=== PATIENT | male | born 1940 | race Caucasian/White ===

== ENCOUNTER 2016-10-08 09:21 | Outpatient (CLI) | payer MEDICARE, OTHER ==
[2016-10-08 12:36] LABS: #Basophils 0.1 thou/uL (0.0-0.2); #Eosinphils 0.2 thou/uL (0.0-0.7); #Lymphocytes 1.6 thou/uL (1.20-3.40); #Monocytes 0.8 thou/uL (0.11-0.59); #Neutrophils 4.6 thou/uL (1.40-6.50); %Basophils 1.1 % (0.0-1.0); %Eosinophils 2.6 % (0.0-10.0); %Lymphocytes 21.8 % (21.0-51.0); %Monocytes 11.3 % (0.0-10.0); Hematocrit 42.3 % (42.0-52.0); Mean Platelet Volume 6.4 fL (7.4-10.4); Red Blood Cell (RBC) Count 4.25 mill/uL (4.70-6.10); White Blood Cell (WBC) Count 7.2 thou/uL (4.8-10.8)
[2016-10-08 12:50] LABS: ALT (SGPT) 22 U/L (0-55); AST (SGOT) 23 U/L (5-34); Alkaline Phosphatase 37 U/L (40-150); Anion Gap 14 mmol/L (10-20); BUN (Urea Nitrogen) 19 mg/dL (8.4-25.7); Bilirubin, Direct 0.2 mg/dL (0.1-0.3); Bilirubin, Total 0.4 mg/dL (0.2-1.2); Calc. Creatinine Clearance 0 mL/min (70-130); Calcium 9.3 mg/dL (7.8-10.44); Carbon Dioxide 26 mmol/L (23-31); Chloride 105 mmol/L (98-107); Estimated GFR-MDRD 62; LDL Cholesterol, Calculated 81 mg/dL
[2016-10-08 13:33] LABS: Hemoglobin A1c 5.5 % (4.0-6.0)
== END 2016-10-08 09:22 | disposition home or self-care (01) ==
LOC: NAVSJIPCSP 09:21
PROVIDERS: ATTEND Family Medicine
DX: I10 Essential (primary) hypertension (principal)
CPT/HCPCS: 36415; 80048; 80061; 80076; 83036; 84443; 85025

== ENCOUNTER 2017-03-11 08:49 | Outpatient (CLI) | payer MEDICARE, OTHER ==
[2017-03-11 13:00] LABS: #Basophils 0.1 thou/uL (0.0-0.2); #Eosinphils 0.2 thou/uL (0.0-0.7); #Lymphocytes 1.5 thou/uL (1.20-3.40); #Monocytes 0.8 thou/uL (0.11-0.59); #Neutrophils 3.2 thou/uL (1.40-6.50); %Basophils 2.4 % (0.0-1.0); %Eosinophils 4.1 % (0.0-10.0); %Lymphocytes 25.4 % (21.0-51.0); %Monocytes 13.3 % (0.0-10.0); %Neutrophils 54.8 % (42.0-75.0); Hemoglobin 14.1 g/dL (14.0-18.0); Mean Corpuscular HGB CONC 32.6 g/dL (32.0-36.0); Mean Corpuscular Hemoglobin 32.1 pg (27.0-31.0); Mean Corpuscular Volume 98.4 fl (80.0-94.0); Mean Platelet Volume 6.6 fL (7.4-10.4); Platelet Count 219 thou/uL (130-400); White Blood Cell (WBC) Count 5.9 thou/uL (4.8-10.8)
[2017-03-11 14:03] LABS: ALT (SGPT) 23 U/L (8-55); AST (SGOT) 30 U/L (5-34); Albumin 3.9 g/dL (3.4-4.8); Alkaline Phosphatase 44 U/L (40-150); Anion Gap 15 mmol/L (10-20); BUN (Urea Nitrogen) 14 mg/dL (8.4-25.7); Bilirubin, Direct 0.2 mg/dL (0.1-0.3); Bilirubin, Total 0.4 mg/dL (0.2-1.2); Calc. Creatinine Clearance 0 mL/min (70-130); Calcium 9.5 mg/dL (7.8-10.44); Carbon Dioxide 26 mmol/L (23-31); Cardiac Risk 2.6 (Less than 4.5); Chloride 106 mmol/L (98-107); Cholesterol 167 mg/dl (< 200 Desired); Estimated GFR-MDRD 63; Glucose 83 mg/dL (83-110); HDL Cholesterol 64 mg/dL (>60 Neg Risk); LDL Cholesterol, Calculated 86 mg/dL; Potassium 4.5 mmol/L (3.5-5.1); Protein, Total 6.1 g/dL (5.8-8.1); Sodium 142 mmol/L (136-145); Triglycerides 84 mg/dL (Less than 150)
[2017-03-11 14:33] LABS: Hemoglobin A1c 5.5 % (4.0-6.0)
== END 2017-03-11 08:50 | disposition home or self-care (01) ==
LOC: NAVSJIPCSP 08:49
PROVIDERS: ATTEND Family Medicine
DX: E78.00 Pure hypercholesterolemia, unspecified (principal); I10 Essential (primary) hypertension; J44.9 Chronic obstructive pulmonary disease, unspecified; I25.10 Atherosclerotic heart disease of native coronary artery without angina pectoris; K05.10 Chronic gingivitis, plaque induced; M85.80 Other specified disorders of bone density and structure, unspecified site; Z79.899 Other long term (current) drug therapy
CPT/HCPCS: 36415; 80048; 80061; 80076; 83036; 84443; 85025

== ENCOUNTER 2018-10-16 13:02 | Inpatient (IN) | payer MEDICARE, OTHER ==
[2018-10-16] MEDS ORDERED: Calcium Carbonate 500 MG ChewTAB PO PRN (15:05)
[2018-10-16] MEDS ORDERED: Acetaminophen 325 MG TAB PO PRN (15:05)
[2018-10-16] MEDS ORDERED: Loperamide HCl 2 MG CAP PO PRN (15:05)
[2018-10-16] MEDS ORDERED: traMADol HCl 50 MG TAB PO PRN (15:05)
[2018-10-16] MEDS ORDERED: cloNIDine 0.1 MG TAB PO PRN (15:05)
[2018-10-16] MEDS ORDERED: Ondansetron ODT 4 MG TAB PO PRN (15:05)
[2018-10-16] MEDS ORDERED: Bisacodyl 10 MG SUPP PR PRN (15:05)
[2018-10-16] MEDS ORDERED: Polyethylene Glycol 3350 17 GM Packet PO PRN (15:05)
[2018-10-16] MEDS ORDERED: Ampicillin 2 GM VIAL IVPB SCH (15:15)
[2018-10-16] MEDS ORDERED: Polyethylene Glycol OPTH DROP 15 ML BOT EA EYE PRN (16:23)
[2018-10-16] MEDS: Ampicillin 2 GM in Sodium Chloride 0.9% 100 ML IVPB SCH ×2 (16:34→20:00)
[2018-10-16] MEDS ORDERED: Albuterol Sulfate 2.5 mg/3 ml Neb NEB PRN (16:46)
[2018-10-16] MEDS: Potassium Chloride 20 MEQ TAB PO SCH (17:53)
[2018-10-16] MEDS: Mometasone Furoate 120 PUFF 220 MCG INH SCH (17:55)
[2018-10-16] MEDS: Montelukast Sodium 10 mg Tablet PO SCH (20:01)
[2018-10-16] MEDS: Famotidine 20 MG TAB PO SCH (20:01)
[2018-10-16] MEDS: Atorvastatin Calcium 20 MG TAB PO SCH (20:01)
[2018-10-16] MEDS: THEOPHYLLINE 200 MG PO SCH (20:01)
[2018-10-16] MEDS ORDERED: Albuterol Sulfate 2.5 mg/3 ml Neb NEB SCH (21:00)
[2018-10-16 21:45] LABS: Bilirubin Negative (Negative); Blood, Urine Trace (Negative); Clarity Clear (Clear); Glucose, Urine (Dipstick) Negative (Negative); Leukocyte Negative (Negative); Nitrite Negative (Negative); Protein, Urine (Dipstick) 30 mg/dL (Neg-Trace); Specific Gravity, Urine 1.015 (1.005-1.030); Urobilinogen 0.2 mg/dL (0.2-1.0)
[2018-10-16 21:53] LABS: Bacteria/HPF None Seen HPF (None Seen); RBC/HPF 0-3 HPF (0-3); Squamous Epithelial 0-3 HPF (0-3); WBC/HPF None Seen HPF (0-3)
--- NOTE | 2018-10-16 22:46 | HP ---
HISTORY OF PRESENT ILLNESS: Mr. Ho is a very pleasant 78-year-old white male from the [facility]. He initially presented to the emergency room with fever , chills, and shortness of breath. 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 He was seen in consultation by Dr. Chaves and by Dr. Canchola. He was transferred to [facility] after being in the rehab hospital for physical therapy and occupational therapy. He was transferred here for continued IV antibiotics to about the middle of October. He is presently on ampicillin 2 g IV piggyback q.4 hours and gentamicin 80 mg IV piggyback q.12 hours. SUBJECTIVE: The patient states he is doing well. He had a nice ride down and is little achy, but glad to be here for more therapy and for his IV antibiotics. PAST MEDICAL HISTORY: 1. Positive for COPD. 2. Hypertension. 3. Left inguinal hernia. 4. Coronary artery disease. 5. Asthma. 6. Renal cyst. 7. Adenocarcinoma of the prostate, for which he completed radiation in April 2010. 8. Osteoporosis. 9. 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 10. Hypercholesterolemia. PAST SURGICAL HISTORY: 1. Lumbar disk surgery L1 through L5 in 1995. 2. Colonoscopy with colon polyps in 2006. 3. Prostate cancer surgery with bilateral pelvic lymphadenectomy and radical retropubic prostatectomy by Dr. Wright. 4. Hernia surgery in 2005. 5. I and D drainage of groin abscess done by in 2005. 6. Colonoscopy in 2004. 7. Colonoscopy by Dr. Case in 2012. 8. Valvular surgery by Dr. Wiley in 2002. 9. Aortic valve and CABG x3 by Dr. Wiley in December 2014. 10. Basal cell cancer of the right cheek in 2016. FAMILY HISTORY: Reveals the patient's father at age 86. He had lung problems, heart valve problems, and heart disease. The patient's mother with heart disease. The patient has one brother with heart issues and one with pancreatic duct issues. The patient had one sister of alcohol abuse at age 52. The patient's paternal grandmother had COPD. The patient's maternal grandfather had heart disease. The patient's maternal grandmother had heart disease. Family history is positive heart disease, COPD, asthma, arthritis, and alcoholism. SOCIAL HISTORY: The patient is a former smoker. He continues to drink beer and/or vodka p.r.n. He lives with his spouse and cares for her. Unfortunately, she has Alzheimer's , unable to live by herself. He is retired preacher. He has either 11 or 12 children. REVIEW OF SYSTEMS: CONSTITUTIONAL: Denies fever, chills, night sweats, or weight change recently. The patient denies any recent headaches or head injuries. The patient denies any change in his vision or hearing. HEENT: Reveals the patient denies any rhinorrhea, nasal congestion, sinus headaches, or cough or cold this time. RESPIRATORY: The patient denies cough, shortness of breath, hemoptysis, productive sputum with cough. CARDIOVASCULAR: The patient denies any edema, dyspnea on exertion, chest pain, orthopnea, or claudication. GASTROINTESTINAL: Reveals the patient denies nausea, vomiting, diarrhea, constipation, dysphagia, melena, or hematemesis. : The patient denies any frequency or urgency, dysuria, incontinence, or hematuria. MUSCULOSKELETAL: The patient has some right hip pain. He does have some generalized weakness. SKIN: The patient denies any changing skin lesions or skin rashes. The patient denies polydipsia, polyphagia, polyuria, change in thirst or appetite, or change in skin color or hair. NEUROLOGIC: The patient denies any dizziness, syncope, paralysis, or loss of sensation. PSYCHIATRY: Psychologically, the patient denies any anxiety or depressive disorder problems. PHYSICAL EXAMINATION: GENERAL: This is a well-developed, well-nourished, very pleasant, thin white male, in no apparent distress at this time. HEENT: Normocephalic and nontraumatic cranium. Pupils equal, round, and reactive. Extraocular movements are intact. Nose and throat are slightly dry. NECK: Supple without masses, nodes, or bruits. CHEST: Clear to auscultation. HEART: Reveals a regular rate and rhythm. Normal S1 and S2 are noted. A 1/6 systolic murmur is heard. ABDOMEN: Scaphoid, soft, nontender without organomegaly. Normal bowel sounds are noted in all 4 quadrants. No rebound or guarding is noted. No CVA tenderness is noted. : Deferred. EXTREMITIES: Reveal no clubbing, cyanosis, or edema. NEUROLOGIC: Grossly unremarkable with no focal findings. ASSESSMENT: 1. 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 2. Chronic atrial fibrillation, rate controlled. 3. Coronary artery disease with prior non-ST segment elevation myocardial infarction. 4. Chronic obstructive pulmonary disease with acute lower respiratory tract infection in the recent past. 5. Hypertension. 6. Critical illness myopathy. 7. Hyperlipidemia. 8. Urinary retention. 9. Recent splenic infarcts. 10. Generalized weakness. PLAN: 1. The patient will continue his ampicillin 2 g IV q.4 hours until the middle of October. 2. The patient will continue gentamicin 80 mg q.12 hours until the middle of October and adjust as needed. 3. Continue to monitor the patient's gentamicin level. 4. Continue to follow the patient's rate for RVR. 5. Monitor the patient's blood pressure. Adjust medications as needed. 6. Stress ulcer prophylaxis. 7. Decubitus precautions. 8. DVT prophylaxis. 9. Continue physical therapy and occupational therapy. 10. Continue to monitor the patient for cardiac signs or symptoms of congestive heart failure. Job ID: [id number] [facility]
[2018-10-17] MEDS: Ampicillin 2 GM in Sodium Chloride 0.9% 100 ML IVPB SCH ×7 (00:32→23:41)
[2018-10-17] MEDS ORDERED: Gentamicin Sulfate 80 MG in Premix Bag 1 BAG IVPB SCH ×2 (01:00)
[2018-10-17] MEDS ORDERED: Gentamicin 80 MG/100 ML BAG IVPB SCH (01:00)
[2018-10-17] MEDS: Acetaminophen 325 MG TAB PO PRN (01:48)
[2018-10-17] MEDS: Guaifenesin DM 100-10/5 ML UDCUP PO PRN (01:48)
[2018-10-17 05:07] LABS: #Basophils 0.1 thou/uL (0.0-0.2); #Eosinphils 0.3 thou/uL (0.0-0.7); #Neutrophils 7.9 thou/uL (1.40-6.50); %Basophils 0.6 % (0.0-1.0); %Eosinophils 2.4 % (0.0-10.0); %Lymphocytes 17.5 % (21.0-51.0); %Monocytes 9.1 % (0.0-10.0); %Neutrophils 70.3 % (42.0-75.0); Hemoglobin 8.4 g/dL (14.0-18.0); Mean Corpuscular HGB CONC 32.6 g/dL (32.0-36.0); Mean Corpuscular Hemoglobin 29.4 pg (27.0-31.0); Mean Corpuscular Volume 90.2 fL (78.0-98.0); Mean Platelet Volume 5.3 fL (7.4-10.4); Platelet Count 361 thou/uL (130-400); RBC Distribution Width 13.2 % (11.5-14.5); Red Blood Cell (RBC) Count 2.86 mill/uL (4.70-6.10); White Blood Cell (WBC) Count 11.3 thou/uL (4.8-10.8)
[2018-10-17 05:27] LABS: ALT (SGPT) 12 U/L (8-55); AST (SGOT) 21 U/L (5-34); Albumin 2.9 g/dL (3.4-4.8); Alkaline Phosphatase 54 U/L (40-150); Anion Gap 14 mmol/L (10-20); BUN (Urea Nitrogen) 15 mg/dL (8.4-25.7); Bilirubin, Total 0.3 mg/dL (0.2-1.2); Calc. Creatinine Clearance 44 mL/min (70-130); Calcium 8.5 mg/dL (7.8-10.44); Carbon Dioxide 25 mmol/L (23-31); Chloride 102 mmol/L (98-107); Estimated GFR-MDRD 55; Globulin 2.7 g/dL (2.4-3.5); Glucose 117 mg/dL (83-110); Protein, Total 5.6 g/dL (5.8-8.1); Sodium 138 mmol/L (136-145)
[2018-10-17 06:15] LABS: Potassium 2.6 mmol/L (3.5-5.1)
--- NOTE | 2018-10-17 08:07 | PRG ---
DATE OF SERVICE: 10/17/2018 SUBJECTIVE: Mr. Ho is a very pleasant 78-year-old white male from [place]. He presented to the emergency room with fever, chills, shortness of breath and mental status changes. He is found to have endocarditis with large vegetation on mitral valve and probable infection of the aortic valve. He is seen in consultation by Dr. Chaves and Dr. Canchola and placed on ampicillin and gentamicin until November 05 or . The patient states he slept well last night except he did have a chill. States it lasted for almost an hour. He got lots of covers. I told him if that happens again, we will do blood cultures. OBJECTIVE: VITAL SIGNS: Blood pressure 135/70, pulse 89 to 108, respirations 20 to 22, O2 saturation 97% on room air, and T-max 98.3. GENERAL: Reveals a well-developed, well-nourished, thin white male, in no apparent distress at this time. HEENT: Reveals normocephalic and nontraumatic cranium. Pupils are equally round and reactive. Extraocular movements are intact. Nose and throat are moist. NECK: Supple without masses, nodes, or bruits. CHEST: Clear to auscultation. HEART: Reveals a regular rate and rhythm without murmurs, gallops, or rubs. Actually, the patient does have a 1/6 systolic ejection murmur. ABDOMEN: Scaphoid, soft, nontender without organomegaly. Normal bowel sounds are noted in all 4 quadrants. No rebound or guarding is noted. : Deferred. EXTREMITIES: Reveal no clubbing, cyanosis, or edema. Neurologically, no focal findings are found. LABORATORY DATA: Reveals white count 11,300, hemoglobin 8.4, hematocrit 25.8, platelet count 361. Sodium 138, potassium 2.6, which is low. The patient will be on 20 mEq of potassium chloride b.i.d. Chloride 102, carbon dioxide 25 with BUN 15, creatinine 1.25, and sugar 117. Urinalysis is unremarkable. ASSESSMENT: 1. 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 2. Chronic atrial fibrillation, rate controlled. 3. Coronary artery disease with [id number] elevation myocardial infarction. 4. Chronic obstructive pulmonary disease with acute lower respiratory tract infection in the recent past. 5. Hypertension. 6. Critical illness myopathy. 7. Hyperlipidemia. 8. Urinary retention. 9. Recent splenic infarcts. 10. Generalized weakness. PLAN: 1. Continue ampicillin 2 g q.4 hours. 2. Continue gentamicin 80 mg q.12 hours. 3. Continue to monitor the patient's gentamicin level which we will do tomorrow morning. 4. Follow the patient's heart rate for RVR. 5. Monitor the patient's blood pressure, adjust medications as needed. 6. Stress ulcer prophylaxis. 7. Decubitus precautions. 8. DVT prophylaxis. 9. Continue PT and OT. 10. Continue to monitor the patient for signs and symptoms of congestive heart failure. Job ID: [id number]
[2018-10-17] MEDS: Fluticasone Propionate Nasal Spray 16 gm Bottle NASAL SCH (08:29)
[2018-10-17] MEDS: Saccharomyces boulardii 250 MG CAP PO SCH (08:30)
[2018-10-17] MEDS: THEOPHYLLINE 200 MG PO SCH ×2 (08:30→20:17)
[2018-10-17] MEDS: Pregabalin 75 MG CAP PO SCH (08:31)
[2018-10-17] MEDS: Potassium Chloride 20 MEQ TAB PO SCH ×2 (08:31→15:59)
[2018-10-17] MEDS: Clopidogrel Bisulfate 75 MG TAB PO SCH (08:33)
[2018-10-17] MEDS: Multivitamin W/ Minerals 1 TAB PO SCH (08:34)
[2018-10-17] MEDS: Tamsulosin HCl 0.4 MG CAP PO SCH (08:34)
[2018-10-17] MEDS: Milk Of Magnesia 30 ML UDCUP PO SCH (08:34)
[2018-10-17] MEDS ORDERED: Sodium Chloride 0.9% 10 ML ONE ×2 (12:02→14:16)
[2018-10-17] MEDS ORDERED: Sodium Chloride 0.9% 100 ML ONE (12:02)
[2018-10-17] MEDS: Gentamicin Sulfate 80 MG in Premix Bag 1 BAG IVPB SCH ×2 (13:43→14:12)
[2018-10-17] MEDS ORDERED: Gentamicin 80 MG/2 ML VIAL ONE (13:56)
[2018-10-17] MEDS: Mometasone Furoate 120 PUFF 220 MCG INH SCH (18:20)
[2018-10-17] MEDS ORDERED: Sodium Chloride 0.9% 20 ML ONE (19:59)
[2018-10-17] MEDS: Famotidine 20 MG TAB PO SCH (20:17)
[2018-10-17] MEDS: Montelukast Sodium 10 mg Tablet PO SCH (20:17)
[2018-10-17] MEDS: Atorvastatin Calcium 20 MG TAB PO SCH (20:17)
[2018-10-18] MEDS: Gentamicin Sulfate 80 MG in Premix Bag 1 BAG IVPB SCH ×2 (00:56→13:23)
[2018-10-18] MEDS ORDERED: Sodium Chloride 0.9% 10 ML ONE (03:41)
[2018-10-18] MEDS: Ampicillin 2 GM in Sodium Chloride 0.9% 100 ML IVPB SCH ×5 (03:47→19:20)
[2018-10-18 05:24] LABS: Anion Gap 15 mmol/L (10-20); BUN (Urea Nitrogen) 14 mg/dL (8.4-25.7); Calc. Creatinine Clearance 52 mL/min (70-130); Calcium 8.3 mg/dL (7.8-10.44); Carbon Dioxide 24 mmol/L (23-31); Chloride 101 mmol/L (98-107); Estimated GFR-MDRD 66; Glucose 89 mg/dL (83-110); Potassium 3.1 mmol/L (3.5-5.1); Sodium 137 mmol/L (136-145)
[2018-10-18] MEDS: Fluticasone Propionate Nasal Spray 16 gm Bottle NASAL SCH (08:34)
[2018-10-18] MEDS: Pregabalin 75 MG CAP PO SCH (08:34)
[2018-10-18] MEDS: THEOPHYLLINE 200 MG PO SCH ×2 (08:36→20:05)
[2018-10-18] MEDS: Tamsulosin HCl 0.4 MG CAP PO SCH (08:36)
[2018-10-18] MEDS: Clopidogrel Bisulfate 75 MG TAB PO SCH (08:38)
[2018-10-18] MEDS: Milk Of Magnesia 30 ML UDCUP PO SCH (08:38)
[2018-10-18] MEDS: Multivitamin W/ Minerals 1 TAB PO SCH (08:38)
[2018-10-18] MEDS: Potassium Chloride 20 MEQ TAB PO SCH ×2 (08:38→16:03)
[2018-10-18] MEDS ORDERED: Ampicillin 2 GM VIAL ONE (08:44)
[2018-10-18] MEDS: predniSONE 20 MG TAB PO SCH (08:47)
[2018-10-18] MEDS: Saccharomyces boulardii 250 MG CAP PO SCH (09:04)
[2018-10-18] MEDS: Mometasone Furoate 120 PUFF 220 MCG INH SCH (18:21)
[2018-10-18 19:39] VITALS: BMI 21.9
[2018-10-18] MEDS: Atorvastatin Calcium 20 MG TAB PO SCH (20:05)
[2018-10-18] MEDS: Montelukast Sodium 10 mg Tablet PO SCH (20:05)
[2018-10-18] MEDS: Famotidine 20 MG TAB PO SCH (20:05)
[2018-10-19] MEDS: Ampicillin 2 GM in Sodium Chloride 0.9% 100 ML IVPB SCH ×7 (00:04→23:58)
[2018-10-19] MEDS: guaiFENesin/Codeine Phosphate 200 mg/20 mg 10 ml UD Cup PO PRN (00:12)
[2018-10-19] MEDS: Gentamicin Sulfate 80 MG in Premix Bag 1 BAG IVPB SCH ×2 (00:56→13:01)
[2018-10-19] MEDS: Pregabalin 75 MG CAP PO SCH (08:11)
[2018-10-19] MEDS: Saccharomyces boulardii 250 MG CAP PO SCH (08:11)
[2018-10-19] MEDS: Clopidogrel Bisulfate 75 MG TAB PO SCH (08:15)
[2018-10-19] MEDS: Multivitamin W/ Minerals 1 TAB PO SCH (08:15)
[2018-10-19] MEDS: THEOPHYLLINE 200 MG PO SCH ×2 (08:16→20:35)
[2018-10-19] MEDS: Potassium Chloride 20 MEQ TAB PO SCH ×2 (08:16→16:56)
[2018-10-19] MEDS: Fluticasone Propionate Nasal Spray 16 gm Bottle NASAL SCH (08:19)
[2018-10-19] MEDS: Milk Of Magnesia 30 ML UDCUP PO SCH (08:21)
--- NOTE | 2018-10-19 08:40 | PRG ---
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 He was found to have endocarditis and large vegetation on the mitral valve and probable infection of his aortic valve. He was seen by Dr. Canchola and Dr. Chaves in consultation. He was placed on ampicillin and gentamicin until November 05 or . He is here also for physical therapy. The patient was sleeping and gently awakened this morning. He states he had a good night, did not have a chill last night. He states he is doing well, and the nurses have walked him quite a bit yesterday. OBJECTIVE: VITAL SIGNS: Today reveal blood pressure 130/65, pulse 80 7 to 99, respirations 20, O2 saturation 96% to 98% on room air, T-max 99.8 which is last night after he ate a hot tomato soup. GENERAL: This is a well-developed, well-nourished, thin white male, in no apparent distress at this time. HEENT: Reveals normocephalic, nontraumatic cranium. Pupils are equally round and reactive. Extraocular movements are intact. Nose and throat are moist. NECK: Supple without masses, nodes, or bruits. CHEST: Clear. No rales, no rhonchi, no wheezes are heard. HEART: Reveals a regular rate and rhythm with a 1/6 systolic ejection murmur. ABDOMEN: Soft, nontender without organomegaly. Normal bowel sounds are noted in all 4 quadrants. No rebound or guarding. : Deferred. EXTREMITIES: Reveal no clubbing, cyanosis, or edema. NEUROLOGIC: The patient has no focal deficits. LABORATORY DATA: Potassium this morning is up to 3.2. The patient will remain on his potassium b.i.d. ASSESSMENT: 1. 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 2. Continue ampicillin and gentamicin until about the middle of month. 3. Chronic atrial fibrillation, rate controlled. 4. Coronary artery disease with fkq-CJ-vzwujtfhl myocardial infarction. 5. Chronic obstructive pulmonary disease with acute lower respiratory infection in the recent past. 6. Hypertension. 7. Critical illness myopathy. 8. Hyperlipidemia. 9. Urinary retention. 10. Recent splenic infarcts. 11. Generalized weakness. PLAN: 1. Continue ampicillin 2 g q.4 hours. 2. Continue gentamicin 80 mg q.12 hours. 3. Continue to monitor the patient's gentamicin level, which is drawn this morning. 4. Continue to monitor the patient's heart rate for RVR. 5. Monitor the patient's blood pressure, adjust medications as needed. 6. Stress ulcer prophylaxis. 7. Decubitus precautions. 8. DVT prophylaxis. 9. Continue PT and OT. 10. Continue to monitor the patient for signs and symptoms of congestive heart failure. Job ID: [id number]
[2018-10-19] MEDS ORDERED: Tamsulosin HCl 0.4 MG CAP PO SCH (09:00)
[2018-10-19] MEDS: Albuterol Sulfate 2.5 mg/3 ml Neb ONE ×2 (09:52→10:26)
--- NOTE | 2018-10-19 10:17 | PRG ---
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 He was found to have endocarditis with large vegetation on his mitral valve. He has a prior history of aortic valve replacement and most likely has a probable infection there also. He was seen by Dr. Canchola and Dr. Chaves over [facility]. He was placed on ampicillin and gentamicin until november 05 or . He is here for physical therapy. The patient was brushing his teeth this morning, states he is doing very well. He is ready for his therapy this morning. OBJECTIVE: VITAL SIGNS: This morning reveal blood pressure 108/62, pulse 73 to 85, respirations are 18 to 20, O2 saturation 96% to 97% on room air and Temperature-max 98.0. GENERAL: This is a well-developed, well-nourished, thin white male, in no apparent distress at this time. HEENT: Reveals normocephalic and nontraumatic cranium. Pupils are equal, round, and reactive. Extraocular movements are intact. Nose and throat are slightly dry. NECK: Supple without masses, nodes, or bruits. CHEST: Clear to auscultation. Breath sounds are little distant. No rales, rhonchi, wheezes, or cough is heard. HEART: Reveals a regular rate and rhythm with a 1/6 systolic ejection murmur. ABDOMEN: Soft and nontender without organomegaly. Normal bowel sounds are noted in all 4 quadrants. No rebound or guarding is noted. : Deferred. EXTREMITIES: Reveal no clubbing, cyanosis, or edema. The patient has no focal deficits today. ASSESSMENT: 1. Endocarditis with Enterococcus and large vegetation on mitral valve. 2. 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 3. Continue Epogen until about November 05 or . 4. Chronic atrial fibrillation, rate controlled. 5. Coronary artery disease with rvi-CV-[id number] myocardial infarction. 6. Chronic obstructive pulmonary disease with acute lower respiratory infection in the recent past. 7. Hypertension. 8. Critical illness myopathy. 9. Hyperlipidemia. 10. Urinary retention. 11. Recent splenic infarcts. 12. Generalized weakness. PLAN: 1. Continue ampicillin 2 g q.4 hours. 2. Continue gentamicin 80 mg q.12 hours. 3. The patient's gentamicin level was 1.9. We will repeat it tomorrow. 4. Continue to monitor the patient's heart rate for RVR. 5. Monitor the patient's blood pressure. Adjust medications as needed. 6. Stress ulcer prophylaxis. 7. Decubitus precautions. 8. DVT prophylaxis. 9. Continue PT and OT. 10. Continue to monitor the patient for signs and symptoms of CHF. Job ID: [id number]
[2018-10-19] MEDS: Acetaminophen 325 MG TAB PO PRN (16:08)
[2018-10-19] MEDS: Mometasone Furoate 120 PUFF 220 MCG INH SCH (18:42)
[2018-10-19] MEDS: Famotidine 20 MG TAB PO SCH (20:35)
[2018-10-19] MEDS: Montelukast Sodium 10 mg Tablet PO SCH (20:35)
[2018-10-19] MEDS: Atorvastatin Calcium 20 MG TAB PO SCH (20:35)
[2018-10-20] MEDS: Gentamicin Sulfate 80 MG in Premix Bag 1 BAG IVPB SCH ×2 (00:48→12:47)
[2018-10-20] MEDS: Ampicillin 2 GM in Sodium Chloride 0.9% 100 ML IVPB SCH ×6 (04:03→23:45)
[2018-10-20] MEDS: Potassium Chloride 20 MEQ TAB PO SCH ×2 (07:50→16:41)
[2018-10-20] MEDS: THEOPHYLLINE 200 MG PO SCH ×2 (08:39→20:15)
[2018-10-20] MEDS: Saccharomyces boulardii 250 MG CAP PO SCH (08:40)
[2018-10-20] MEDS: predniSONE 20 MG TAB PO SCH (08:41)
[2018-10-20] MEDS: Multivitamin W/ Minerals 1 TAB PO SCH (08:42)
[2018-10-20] MEDS: Clopidogrel Bisulfate 75 MG TAB PO SCH (08:43)
[2018-10-20] MEDS: Pregabalin 75 MG CAP PO SCH (08:43)
[2018-10-20] MEDS: Tamsulosin HCl 0.4 MG CAP PO SCH (08:49)
[2018-10-20] MEDS: Fluticasone Propionate Nasal Spray 16 gm Bottle NASAL SCH (08:49)
[2018-10-20] MEDS: Milk Of Magnesia 30 ML UDCUP PO SCH (09:17)
--- NOTE | 2018-10-20 10:27 | PRG ---
DATE OF SERVICE: 10/20/2018 SUBJECTIVE: Mr. Ho is a pleasant 78-year-old white male. He presented to the emergency room with fever, chills, mental status changes, shortness of breath, and was found to be septic. The etiology of the sepsis was endocarditis with a large vegetation on his mitral valve. He had a prior history of an aortic valve replacement, and was felt that he most likely had infection there also. He was seen in consultation by Dr. Canchola and Dr. Chaves. He was placed on ampicillin and gentamicin until November 05 or November 06. He is here for physical therapy. OBJECTIVE: VITAL SIGNS: Today reveal blood pressure this morning 131/74, pulse 84 to 89, respirations 18 to 20, O2 saturation 94% to 97% on room air, and T-max 97.8. GENERAL: This is a well-developed, well-nourished, very thin white male, in no apparent distress at this time. He states he is doing better and was able to walk and stand yesterday for a short period time without his walker. HEENT: Normocephalic, nontraumatic cranium. Pupils equally round and reactive. Extraocular movements are intact. Nose and throat are moist. NECK: Supple without masses, nodes, or bruits. CHEST: Clear to auscultation. No rales, no rhonchi, no wheezes or cough are heard. HEART: Reveals a regular rate and rhythm with a 1/6 systolic ejection murmur. No irregularity is noted. ABDOMEN: Soft, nontender without organomegaly. Normal bowel sounds are noted. No rebound or guarding is noted. : Deferred. EXTREMITIES: Reveal no clubbing, cyanosis, or edema. The patient has no focal deficits today. ASSESSMENT: 1. Endocarditis with Enterococcus and large vegetation of mitral valve. 2. 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 3. Continue Epogen until November 05 or . 4. Chronic atrial fibrillation, rate controlled. 5. Coronary artery disease with sar-WO-abejeskuk myocardial infarction. 6. Chronic obstructive pulmonary disease with acute lower respiratory infection in the recent past. 7. Hypertension. 8. Critical illness myopathy. 9. Hyperlipidemia. 10. Urinary retention. 11. Recent splenic infarcts. 12. Generalized weakness. PLAN: 1. Continue gentamicin 80 mg q.2 hours, awaiting gentamicin trough level this morning. 2. Continue ampicillin 2 g q.4 hours. 3. Continue to monitor the patient's heart rate. 4. Monitor the patient's blood pressure and adjust medications as needed. 5. Stress ulcer prophylaxis. 6. Decubitus precautions. 7. DVT prophylaxis. 8. Continue PT and OT. 9. Continue to monitor the patient for CHF. Job ID: [id number]
[2018-10-20] MEDS: Mometasone Furoate 120 PUFF 220 MCG INH SCH (18:20)
[2018-10-20] MEDS: Famotidine 20 MG TAB PO SCH (20:16)
[2018-10-20] MEDS: Montelukast Sodium 10 mg Tablet PO SCH (20:16)
[2018-10-20] MEDS: Atorvastatin Calcium 20 MG TAB PO SCH (20:16)
[2018-10-21] MEDS: Acetaminophen 325 MG TAB PO PRN (00:21)
[2018-10-21] MEDS: GENTAMICIN IVPB SCH ×2 (01:48→13:01)
[2018-10-21] MEDS: Ampicillin 2 GM in Sodium Chloride 0.9% 100 ML IVPB SCH ×5 (04:19→20:43)
[2018-10-21] MEDS ORDERED: Ampicillin 2 GM VIAL ONE ×2 (08:24→11:43)
[2018-10-21] MEDS: Fluticasone Propionate Nasal Spray 16 gm Bottle NASAL SCH (08:32)
[2018-10-21] MEDS: Pregabalin 75 MG CAP PO SCH (08:33)
[2018-10-21] MEDS: THEOPHYLLINE 200 MG PO SCH ×2 (08:33→20:44)
[2018-10-21] MEDS: Potassium Chloride 20 MEQ TAB PO SCH ×2 (08:33→16:06)
[2018-10-21] MEDS: Saccharomyces boulardii 250 MG CAP PO SCH (08:33)
[2018-10-21] MEDS: Clopidogrel Bisulfate 75 MG TAB PO SCH (08:34)
[2018-10-21] MEDS: Tamsulosin HCl 0.4 MG CAP PO SCH (08:34)
[2018-10-21] MEDS: Multivitamin W/ Minerals 1 TAB PO SCH (08:34)
[2018-10-21] MEDS: Milk Of Magnesia 30 ML UDCUP PO SCH (08:36)
--- NOTE | 2018-10-21 10:26 | PRG ---
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 Sepsis was found to be from endocarditis with large vegetation of his mitral valve. He also has had a prosthetic heart valve placed and it was felt that he may have an infection there. He was seen in consultation by Dr. Canchola and Dr. Chaves. He is on IV ampicillin and IV gentamicin through November [address] Canchola' orders. He is transferred here for physical therapy and occupational therapy. OBJECTIVE: VITAL SIGNS: Today reveal blood pressure 121/75, pulse 66 to 75, respirations 20, O2 saturation 97% to 99% on room air, and T-max 98.0. GENERAL: This is a well-developed, well-nourished, very pleasant, thin white male, in no apparent distress at this time. HEENT: Reveals normocephalic, nontraumatic cranium. Pupils equally round and reactive. Extraocular movements are intact. Nose and throat are slightly dry. NECK: Supple without masses, nodes, or bruits. CHEST: Clear to auscultation. No rales, rhonchi, or wheezes are heard. No cough is noted. HEART: Reveals a regular rate and rhythm. The patient does have a 1/6 systolic ejection murmur. No rate control today. ABDOMEN: Soft, nontender without organomegaly. Somewhat scaphoid. Normal bowel sounds noted in all 4 quadrants. No rebound or guarding is noted. : Deferred. EXTREMITIES: Reveal no clubbing, cyanosis, or edema. ASSESSMENT: 1. Endocarditis with Enterococcus and large vegetation of the mitral valve. 2. 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 3. Continue Epogen until November 05 or . 4. Chronic atrial fibrillation, rate controlled. 5. Coronary artery disease with [id number] myocardial infarction. 6. Chronic obstructive pulmonary disease with acute lower respiratory infection recently. 7. Hypertension. 8. Critical illness myopathy. 9. Hyperlipidemia. 10. Urinary retention. 11. Recent splenic infarcts. 12. Generalized infarcts. 13. Generalized weakness. PLAN: 1. Continue gentamicin [address] Canchola' recommendation. 2. Continue ampicillin 2 g q.4 hours. 3. The patient will finish both antibiotics on November 02. 4. Anticipate discharge for the patient on November 03. 5. Continue to monitor the patient's blood pressure and adjust medications as needed. 6. Stress ulcer prophylaxis. 7. Decubitus precautions. 8. DVT prophylaxis. 9. Continue PT and OT. 10. Continue to monitor the patient for CHF. Job ID: [id number]
[2018-10-21 17:47] LABS: Bilirubin Negative (Negative); Blood, Urine Negative (Negative); Clarity CLEAR (Clear); Glucose, Urine (Dipstick) Negative (Negative); Leukocyte Negative (Negative); Nitrite Negative (Negative); Protein, Urine (Dipstick) Negative (Neg-Trace); Urobilinogen 0.2 mg/dL (0.2-1.0); pH, Urine 7.5 (5.0-9.0)
[2018-10-21] MEDS: Mometasone Furoate 120 PUFF 220 MCG INH SCH (18:05)
[2018-10-21 18:13] LABS: Bacteria/HPF None Seen HPF (None Seen); Hyaline Casts/LPF NONE SEEN LPF (0-3 Hyaline); RBC/HPF None Seen HPF (0-3); Squamous Epithelial 0-3 HPF (0-3); WBC/HPF None Seen HPF (0-3)
[2018-10-21] MEDS: Famotidine 20 MG TAB PO SCH (20:44)
[2018-10-21] MEDS: Atorvastatin Calcium 20 MG TAB PO SCH (20:44)
[2018-10-21] MEDS: Montelukast Sodium 10 mg Tablet PO SCH (20:44)
[2018-10-22] MEDS: Ampicillin 2 GM in Sodium Chloride 0.9% 100 ML IVPB SCH ×6 (00:28→20:42)
[2018-10-22] MEDS: GENTAMICIN IVPB SCH ×2 (00:28→13:35)
[2018-10-22 05:58] LABS: Band 2 % (5-11); Eosinophils 3 % (0-10); Hemoglobin 9.2 g/dL (14.0-18.0); Lymphocytes 21 % (21-51); MDiff Complete? YES; Mean Corpuscular HGB CONC 33.3 g/dL (32.0-36.0); Mean Corpuscular Hemoglobin 29.8 pg (27.0-31.0); Mean Corpuscular Volume 89.5 fL (78.0-98.0); Mean Platelet Volume 5.2 fL (7.4-10.4); Monocytes 6 % (0-10); Neutrophil 68 % (42-75); Platelet Count 364 thou/uL (130-400); Platelet Morphology Comment Appears Adequate; RBC Distribution Width 13.6 % (11.5-14.5); RBC Morphology Normal; Red Blood Cell (RBC) Count 3.07 mill/uL (4.70-6.10); White Blood Cell (WBC) Count 12.4 thou/uL (4.8-10.8)
[2018-10-22 06:04] LABS: ALT (SGPT) 16 U/L (8-55); AST (SGOT) 23 U/L (5-34); Alkaline Phosphatase 57 U/L (40-150); Anion Gap 12 mmol/L (10-20); BUN (Urea Nitrogen) 12 mg/dL (8.4-25.7); Bilirubin, Total 0.4 mg/dL (0.2-1.2); CRP (Inflammatory) 9.32 mg/dL (= or < 0.5); Calc. Creatinine Clearance 38 mL/min (70-130); Calcium 8.9 mg/dL (7.8-10.44); Carbon Dioxide 25 mmol/L (23-31); Chloride 100 mmol/L (98-107); Estimated GFR-MDRD 46; Globulin 2.9 g/dL (2.4-3.5); Glucose 105 mg/dL (83-110); Potassium 3.1 mmol/L (3.5-5.1); Protein, Total 5.9 g/dL (5.8-8.1); Sodium 134 mmol/L (136-145)
[2018-10-22] MEDS: Fluticasone Propionate Nasal Spray 16 gm Bottle NASAL SCH (08:05)
[2018-10-22] MEDS: Tamsulosin HCl 0.4 MG CAP PO SCH (08:07)
[2018-10-22] MEDS: predniSONE 20 MG TAB PO SCH (08:07)
[2018-10-22] MEDS: Saccharomyces boulardii 250 MG CAP PO SCH (08:07)
[2018-10-22] MEDS: Pregabalin 75 MG CAP PO SCH (08:08)
[2018-10-22] MEDS: Clopidogrel Bisulfate 75 MG TAB PO SCH (08:09)
[2018-10-22] MEDS: Multivitamin W/ Minerals 1 TAB PO SCH (08:09)
[2018-10-22] MEDS: Milk Of Magnesia 30 ML UDCUP PO SCH (08:09)
[2018-10-22] MEDS: Potassium Chloride 20 MEQ TAB PO SCH ×2 (08:09→16:36)
[2018-10-22] MEDS: THEOPHYLLINE 200 MG PO SCH ×2 (08:09→20:43)
[2018-10-22] MEDS: Mometasone Furoate 120 PUFF 220 MCG INH SCH (18:28)
--- NOTE | 2018-10-22 20:36 | PRG ---
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 He was found to have fever, chills, shortness of breath, and was septic. The etiology of the sepsis was endocarditis with large vegetation of mitral valve. He was seen in consultation by Dr. Canchola and Dr. Chaves. He was also noted to have a prosthetic heart valve, was felt he may have an infection. Started on ampicillin and IV gentamicin through November [address] Canchola' orders. He was transferred here for physical therapy and occupational therapy, and to continue his IV antibiotics. OBJECTIVE: VITAL SIGNS: This morning reveal blood pressure 121/61, pulse 83 to 88, respirations 20, O2 saturation 95% on room air, and T-max 98.2. GENERAL: This is a well-developed, well-nourished, very pleasant white male, in no apparent distress at this time. HEENT: Normocephalic and nontraumatic cranium. Pupils are equal, round, reactive. Extraocular movements are intact. Nose and throat are slightly dry. NECK: Supple without masses, nodes, or bruits. CHEST: Clear to auscultation. No rales, rhonchi, wheezes, or cough is noted. HEART: Reveals a regular rate and rhythm. No murmurs, gallops, or rubs. The patient does have 1/6 systolic ejection murmur. He is rate controlled today. ABDOMEN: Soft, nontender without organomegaly. Normal bowel sounds are noted. No rebound or guarding is noted. : Deferred. EXTREMITIES: Reveal no clubbing, cyanosis, or edema. Just some pain. Occasionally moves around with arthritis. ASSESSMENT: 1. Endocarditis with Enterococcus and large vegetation on mitral valve. 2. 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 3. Continue Epogen until November 05 or . 4. Continue atrial fibrillation, rate control. 5. Coronary artery disease with mfj-BA-[id number] myocardial infarction in the past. 6. Chronic obstructive pulmonary disease exacerbation with acute lower respiratory infection. 7. Hypertension. 8. Critical illness myopathy. 9. Hyperlipidemia. 10. Urinary retention. 11. Recent splenic infarcts. 12. Generalized infarcts. 13. Generalized weakness. PLAN: 1. Continue gentamicin 60 mg q.[address] Canchola' recommendation. 2. Continue ampicillin 2 g q.4 hours. 3. The patient will finish both antibiotics on the . The patient will be discharged anticipated on November 03. 4. Continue the patient's blood pressure medicines just as needed. 5. Stress ulcer prophylaxis. 6. Decubitus precautions. 7. DVT prophylaxis. 8. Continue physical therapy and occupational therapy. 9. Continue to monitor the patient for signs symptoms of congestive heart failure. Job ID: [id number]
[2018-10-22] MEDS: Famotidine 20 MG TAB PO SCH (20:43)
[2018-10-22] MEDS: Montelukast Sodium 10 mg Tablet PO SCH (20:43)
[2018-10-22] MEDS: Atorvastatin Calcium 20 MG TAB PO SCH (20:43)
[2018-10-22] MEDS: guaiFENesin/Codeine Phosphate 200 mg/20 mg 10 ml UD Cup PO PRN (20:48)
[2018-10-23] MEDS: Ampicillin 2 GM in Sodium Chloride 0.9% 100 ML IVPB SCH ×6 (00:38→20:05)
[2018-10-23] MEDS: GENTAMICIN IVPB SCH ×2 (00:41→12:35)
[2018-10-23] MEDS: Acetaminophen 325 MG TAB PO PRN (01:18)
[2018-10-23] MEDS: Pregabalin 75 MG CAP PO SCH (08:07)
[2018-10-23] MEDS: Clopidogrel Bisulfate 75 MG TAB PO SCH (08:07)
[2018-10-23] MEDS: Saccharomyces boulardii 250 MG CAP PO SCH (08:08)
[2018-10-23] MEDS: Fluticasone Propionate Nasal Spray 16 gm Bottle NASAL SCH (08:08)
[2018-10-23] MEDS: Milk Of Magnesia 30 ML UDCUP PO SCH (08:08)
[2018-10-23] MEDS: Multivitamin W/ Minerals 1 TAB PO SCH (08:08)
[2018-10-23] MEDS: Tamsulosin HCl 0.4 MG CAP PO SCH (08:08)
[2018-10-23] MEDS: Potassium Chloride 20 MEQ TAB PO SCH ×2 (08:08→16:38)
[2018-10-23] MEDS: THEOPHYLLINE 200 MG PO SCH ×2 (08:09→21:02)
[2018-10-23 10:40] LABS: #Basophils 0.1 thou/uL (0.0-0.2); #Eosinphils 0.4 thou/uL (0.0-0.7); #Lymphocytes 0.9 thou/uL (1.20-3.40); #Monocytes 0.8 thou/uL (0.11-0.59); #Neutrophils 10.2 thou/uL (1.40-6.50); %Basophils 0.6 % (0.0-1.0); %Eosinophils 3.2 % (0.0-10.0); %Lymphocytes 7.1 % (21.0-51.0); %Monocytes 6.6 % (0.0-10.0); %Neutrophils 82.6 % (42.0-75.0); Hemoglobin 9.9 g/dL (14.0-18.0); Mean Corpuscular HGB CONC 33.4 g/dL (32.0-36.0); Mean Corpuscular Hemoglobin 29.7 pg (27.0-31.0); Mean Corpuscular Volume 88.9 fL (78.0-98.0); Mean Platelet Volume 5.9 fL (7.4-10.4); Platelet Count 348 thou/uL (130-400); RBC Distribution Width 13.5 % (11.5-14.5); Red Blood Cell (RBC) Count 3.33 mill/uL (4.70-6.10); White Blood Cell (WBC) Count 12.3 thou/uL (4.8-10.8)
[2018-10-23 10:52] LABS: Anion Gap 17 mmol/L (10-20); BUN (Urea Nitrogen) 15 mg/dL (8.4-25.7); Calc. Creatinine Clearance 37 mL/min (70-130); Calcium 8.9 mg/dL (7.8-10.44); Carbon Dioxide 22 mmol/L (23-31); Chloride 98 mmol/L (98-107); Estimated GFR-MDRD 44; Glucose 197 mg/dL (83-110); Potassium 3.6 mmol/L (3.5-5.1); Sodium 133 mmol/L (136-145)
--- NOTE | 2018-10-23 12:05 | PRG ---
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 He was found to have fever, chills, shortness of breath, and was septic. 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 He was seen in consultation by Dr. Canchola and Dr. Chaves. 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 He was supposed to finish those on November [address] Canchola' calculations. He was transferred here for physical therapy and occupational therapy. The patient states he does not feel well today. He started coughing yesterday and had some low-grade temperature. He is a lot weaker and has been incontinent of urine this morning. We did order some labs and a urinalysis. A couple of days ago, he had a temperature of 100.3, and so we did blood cultures x2 and that is still pending. OBJECTIVE: GENERAL: This is a well developed, well nourished. The patient states he just feels not well. He does not feel like he has a flu, but we did do flu swabs, which were pending. HEENT: Normocephalic, nontraumatic cranium. Pupils equally round and reactive. Extraocular movements are intact. Nose and throat are somewhat dry. VITAL SIGNS: The patient feels warm. His temperature is actually 99.6. NECK: Supple without masses, nodes, or bruits. CHEST: Clear to auscultation. No rales. No rhonchi. No wheezes are heard. Cough is noted today, which is somewhat dry, hacky type cough, nonproductive. HEART: Reveals a regular rate and rhythm. No murmurs, gallops, or rubs are noted. The patient has 1/6 systolic ejection murmur, which is rate controlled. ABDOMEN: Soft, nontender without organomegaly. Normal bowel sounds are noted in all 4 quadrants. No rebound or guarding is noted. : Deferred. EXTREMITIES: Reveal no clubbing, cyanosis, or edema. Just pain. Occasionally, the patient moves around, but he has not been able to do therapy today because he is too weak. ASSESSMENT: 1. Unknown etiology visiting of low-grade temperature 100.6 this morning along with incontinence of urine and just feeling weak with increased cough. 2. 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 3. 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 4. Continue to monitor the patient's atrial fibrillation for rate control. 5. The patient has coronary artery disease with non-ST myocardial infarction in the past. 6. Chronic obstructive pulmonary disease with acute upper respiratory infection. 7. Hypertension. 8. Critical illness myopathy. 9. Hyperlipidemia. 10. Urinary retention. 11. Recent splenic infarct. 12. Generalized infarcts. 13. Generalized weakness. PLAN: 1. Continue gentamicin 60 mg q.[address] Canchola' recommendation. 2. Continue ampicillin 2 g q.4. 3. The patient will finish his antibiotics on November 02. 4. Discharge anticipated on November 03. 5. Continue blood pressure medicines. 6. Stress ulcer prophylaxis. 7. Decubitus precautions. 8. DVT prophylaxis. 9. Continue physical therapy and occupational therapy. 10. Continue to monitor the patient for signs and symptoms of congestive heart failure. 11. Await laboratories ordered this morning. 12. Await blood cultures, which ordered 2 days ago. 13. Await urinalysis. 14. Dr. Montgomery is on-call this weekend. Job ID: [id number]
--- NOTE | 2018-10-23 14:16 | RAD ---
CHEST 1 VIEW: INDICATION: Cough and fever. COMPARISON: Prior exam dated 09/24/2018. FINDINGS: There is persistent left basilar atelectasis versus infiltrate. There is a left-sided PICC line in p lace. Portions of left costophrenic angle are excluded. Right lung is clear. Heart size is mildly prominent. Midline sternotomy changes are similar-appearing. IMPRESSION: Some exclusion of the left costophrenic angle. Would recommend a repeat PA and lateral of the chest to further evaluate the left basilar airspace opacity. The patient had some subsegmental volume loss versus scarring on the comparison dated 09/24/2018. POS: [facility]
[2018-10-23] MEDS: Mometasone Furoate 120 PUFF 220 MCG INH SCH (18:18)
[2018-10-23] MEDS: Famotidine 20 MG TAB PO SCH (21:02)
[2018-10-23] MEDS: Atorvastatin Calcium 20 MG TAB PO SCH (21:02)
[2018-10-23] MEDS: Montelukast Sodium 10 mg Tablet PO SCH (21:02)
[2018-10-24] MEDS: Ampicillin 2 GM in Sodium Chloride 0.9% 100 ML IVPB SCH ×6 (00:07→20:38)
[2018-10-24] MEDS: GENTAMICIN IVPB SCH ×2 (00:46→13:17)
[2018-10-24] MEDS: Potassium Chloride 20 MEQ TAB PO SCH ×2 (08:40→17:32)
[2018-10-24] MEDS: Saccharomyces boulardii 250 MG CAP PO SCH (08:40)
[2018-10-24] MEDS: Tamsulosin HCl 0.4 MG CAP PO SCH (08:40)
[2018-10-24] MEDS: Acetaminophen 325 MG TAB PO PRN (08:40)
[2018-10-24] MEDS: THEOPHYLLINE 200 MG PO SCH ×2 (08:40→20:39)
[2018-10-24] MEDS: Pregabalin 75 MG CAP PO SCH (08:40)
[2018-10-24] MEDS: Milk Of Magnesia 30 ML UDCUP PO SCH (08:41)
[2018-10-24] MEDS: Fluticasone Propionate Nasal Spray 16 gm Bottle NASAL SCH (08:41)
[2018-10-24] MEDS: Multivitamin W/ Minerals 1 TAB PO SCH (08:41)
[2018-10-24] MEDS: predniSONE 20 MG TAB PO SCH (08:41)
[2018-10-24] MEDS: Clopidogrel Bisulfate 75 MG TAB PO SCH (08:41)
[2018-10-24] MEDS ORDERED: Furosemide 20 MG/2 ML VIAL SLOW IVP SCH (16:30)
--- NOTE | 2018-10-24 16:54 | PRG ---
DATE OF SERVICE: 10/24/2018 SUBJECTIVE: Mr. Ho is sleeping, but arousable. He is able to recognize me. He states that he is feeling better than yesterday. His flu swabs are negative. Laboratory values were not any different from before except his BNP was elevated at 700. His creatinine has also been creeping up. He denies any chest pain or shortness of breath. He denies any PND or orthopnea. I advised him that I will give him a dose of Lasix 20 mg IV and see if that makes any difference. No fever or chills. No family at bedside. OBJECTIVE: VITAL SIGNS: He is afebrile, T-max 99.9, pulse 98, respirations 18, oxygen saturation 94% on room air, blood pressure 119/66. CARDIOVASCULAR SYSTEM: S1-S2 plus. RESPIRATORY SYSTEMS: Normal vesicular breath sounds. ABDOMEN: Soft, nontender. Bowel sounds are heard in all quadrants. EXTREMITIES: Without cyanosis or clubbing. CENTRAL NERVOUS SYSTEM: Alert, awake, and oriented x3. Cranial nerves 2 through 12 intact. Generalized weakness. LABORATORY VALUES: White count is 12.3, it was 12.4 on 10/22 and 11.3 on 10/17. These labs are from yesterday. H and H was 9.9 and 29.6. Chemistry shows a sodium 133, potassium 3.6, BUN and creatinine were 15 and 1.53. BNP was 700.1. IMPRESSION: 1. Bacterial endocarditis. 2. Fever with negative flu swab. Chest x-ray shows some exclusion of left costophrenic angle and possible left basilar airspace opacity. Recommend PA and lateral. I will order it today. 3. Worsening renal function and elevated BNP. We will give him one dose of Lasix. 4. Atrial fibrillation. 5. Coronary artery disease. 6. Chronic obstructive pulmonary disease. 7. Hypertension. 8. Dyslipidemia. 9. Possible left basilar infiltrate. PLAN: 1. Continue gentamicin and ampicillin. 2. One dose of Lasix 20 mg IV now. 3. Check chest x-ray PA and lateral. 4. Continue DVT and stress ulcer prophylaxis. 5. Decubitus precautions. 6. Routine laboratory values. 7. Physical therapy. 8. Monitor vital signs. Job ID: [id number]
--- NOTE | 2018-10-24 17:18 | RAD ---
CHEST TWO VIEW 10/24/18 HISTORY: Followup left basilar opacity. COMPARISON: Radiograph 10/23/18. FINDINGS: PICC is in place with tip in good position. Mild blunting of both lateral costophrenic sulci. Calcified granuloma in the left mid lung. Aeration of left lower lobe is good. IMPRESSION: 1. Small bilateral pleural effusions. 2. Left basilar opacity is similar. POS: [facility]
[2018-10-24] MEDS: Mometasone Furoate 120 PUFF 220 MCG INH SCH (17:32)
[2018-10-24] MEDS: Montelukast Sodium 10 mg Tablet PO SCH (20:39)
[2018-10-24] MEDS: Atorvastatin Calcium 20 MG TAB PO SCH (20:39)
[2018-10-24] MEDS: Famotidine 20 MG TAB PO SCH (20:39)
[2018-10-24] MEDS: Guaifenesin DM 100-10/5 ML UDCUP PO PRN (21:41)
[2018-10-25] MEDS: GENTAMICIN IVPB SCH ×2 (00:36→13:13)
[2018-10-25] MEDS: Ampicillin 2 GM in Sodium Chloride 0.9% 100 ML IVPB SCH ×6 (00:36→20:40)
[2018-10-25 05:38] LABS: Anion Gap 16 mmol/L (10-20); BUN (Urea Nitrogen) 18 mg/dL (8.4-25.7); Calc. Creatinine Clearance 45 mL/min (70-130); Calcium 8.7 mg/dL (7.8-10.44); Carbon Dioxide 21 mmol/L (23-31); Chloride 101 mmol/L (98-107); Estimated GFR-MDRD 56; Glucose 113 mg/dL (83-110); Sodium 135 mmol/L (136-145)
[2018-10-25 05:42] LABS: Potassium 2.9 mmol/L (3.5-5.1)
[2018-10-25] MEDS: Potassium Chloride 20 MEQ TAB PO SCH ×4 (06:09→17:37)
[2018-10-25] MEDS: Acetaminophen 325 MG TAB PO PRN ×2 (06:18→15:51)
[2018-10-25] MEDS: Fluticasone Propionate Nasal Spray 16 gm Bottle NASAL SCH (09:47)
[2018-10-25] MEDS: Clopidogrel Bisulfate 75 MG TAB PO SCH (09:47)
[2018-10-25] MEDS: Pregabalin 75 MG CAP PO SCH (09:48)
[2018-10-25] MEDS: Tamsulosin HCl 0.4 MG CAP PO SCH (09:48)
[2018-10-25] MEDS: THEOPHYLLINE 200 MG PO SCH ×2 (09:49→20:40)
[2018-10-25] MEDS: Milk Of Magnesia 30 ML UDCUP PO SCH (09:49)
[2018-10-25] MEDS: Saccharomyces boulardii 250 MG CAP PO SCH (09:56)
[2018-10-25] MEDS: Multivitamin W/ Minerals 1 TAB PO SCH (09:56)
--- NOTE | 2018-10-25 15:42 | PRG ---
DATE OF SERVICE: 10/25/2018 SUBJECTIVE: Mr. Ho is up in his wheelchair. He denies any complaints. He states that his breathing is easier. He is waiting on treatment. He denies any fever or chills. No family at bedside. OBJECTIVE: VITAL SIGNS: He is afebrile. Heart rate 98, respirations 18, oxygen saturations 98% on room air, blood pressure is 118/52. CARDIOVASCULAR: S1 and S2 plus. Rate and rhythm regular. RESPIRATORY SYSTEM: Normal vesicular breath sounds heard on lung keith. ABDOMEN: Soft, nontender. Bowel sounds heard in all quadrants. EXTREMITIES: Without cyanosis or clubbing. Trace edema. Peripheral pulses are palpable but decreased. CENTRAL NERVOUS SYSTEM: A and O x3. Cranial nerves 2 through 12 are intact. Generalized weakness. LABORATORY VALUES: Sodium 135, potassium 2.9, BUN and creatinine were 18 and 1.24. BNP was 626. I gave him a dose of Lasix yesterday and replaced his potassium, and repeat at noon was 4. BNP three days ago was 700. IMPRESSION: 1. Congestive heart failure. 2. Endocarditis. 3. PA and lateral chest x-ray shows bilateral pleural effusion with calcified granuloma with good the aeration. 4. Atrial fibrillation. 5. Coronary artery disease. 6. Chronic obstructive pulmonary disease. 7. Hypertension. 8. Dyslipidemia. PLAN: 1. Continue IV antibiotics. 2. Start p.o. diuretic, I will start him on Aldactone. 3. DVT and stress ulcer prophylaxis. 4. Decubitus precautions. 5. Breathing treatments. 6. Physical therapy. 7. Dr. Tristan Ryder will be back tonight. Job ID: [id number]
[2018-10-25] MEDS: Mometasone Furoate 120 PUFF 220 MCG INH SCH (17:37)
[2018-10-25] MEDS: Montelukast Sodium 10 mg Tablet PO SCH (20:39)
[2018-10-25] MEDS: Famotidine 20 MG TAB PO SCH (20:39)
[2018-10-25] MEDS: Atorvastatin Calcium 20 MG TAB PO SCH (20:40)
[2018-10-25] MEDS: Melatonin 3 MG TAB PO PRN (20:40)
[2018-10-25] MEDS: Guaifenesin DM 100-10/5 ML UDCUP PO PRN (20:50)
[2018-10-26] MEDS: GENTAMICIN IVPB SCH ×2 (00:22→12:45)
[2018-10-26] MEDS: Ampicillin 2 GM in Sodium Chloride 0.9% 100 ML IVPB SCH ×6 (00:23→21:00)
[2018-10-26] MEDS: Acetaminophen 325 MG TAB PO PRN ×2 (01:42→21:02)
[2018-10-26 02:07] LABS: #Basophils 0.1 thou/uL (0.0-0.2); #Eosinphils 0.8 thou/uL (0.0-0.7); #Lymphocytes 1.1 thou/uL (1.20-3.40); #Monocytes 0.5 thou/uL (0.11-0.59); #Neutrophils 11.3 thou/uL (1.40-6.50); %Basophils 0.4 % (0.0-1.0); %Eosinophils 5.5 % (0.0-10.0); %Lymphocytes 7.7 % (21.0-51.0); %Monocytes 3.9 % (0.0-10.0); %Neutrophils 82.4 % (42.0-75.0); Hemoglobin 8.9 g/dL (14.0-18.0); Mean Corpuscular HGB CONC 33.4 g/dL (32.0-36.0); Mean Corpuscular Hemoglobin 29.4 pg (27.0-31.0); Mean Platelet Volume 5.8 fL (7.4-10.4); Platelet Count 349 thou/uL (130-400); RBC Distribution Width 13.2 % (11.5-14.5); Red Blood Cell (RBC) Count 3.01 mill/uL (4.70-6.10); White Blood Cell (WBC) Count 13.7 thou/uL (4.8-10.8)
[2018-10-26 02:18] LABS: ALT (SGPT) 25 U/L (8-55); AST (SGOT) 30 U/L (5-34); Alkaline Phosphatase 60 U/L (40-150); Anion Gap 16 mmol/L (10-20); BUN (Urea Nitrogen) 18 mg/dL (8.4-25.7); Bilirubin, Total 0.4 mg/dL (0.2-1.2); Calc. Creatinine Clearance 37 mL/min (70-130); Calcium 8.7 mg/dL (7.8-10.44); Carbon Dioxide 19 mmol/L (23-31); Chloride 102 mmol/L (98-107); Estimated GFR-MDRD 44; Glucose 104 mg/dL (83-110); Potassium 3.6 mmol/L (3.5-5.1); Sodium 133 mmol/L (136-145)
[2018-10-26] MEDS: Spironolactone 25 MG TAB PO SCH (08:51)
[2018-10-26] MEDS: THEOPHYLLINE 200 MG PO SCH ×2 (08:51→21:02)
[2018-10-26] MEDS: Multivitamin W/ Minerals 1 TAB PO SCH (08:52)
[2018-10-26] MEDS: predniSONE 20 MG TAB PO SCH (08:52)
[2018-10-26] MEDS: Clopidogrel Bisulfate 75 MG TAB PO SCH (08:52)
[2018-10-26] MEDS: Potassium Chloride 20 MEQ TAB PO SCH ×2 (08:53→16:52)
[2018-10-26] MEDS: Tamsulosin HCl 0.4 MG CAP PO SCH (08:53)
[2018-10-26] MEDS: Pregabalin 75 MG CAP PO SCH (08:53)
[2018-10-26] MEDS: Saccharomyces boulardii 250 MG CAP PO SCH (08:54)
[2018-10-26] MEDS: Milk Of Magnesia 30 ML UDCUP PO SCH (08:54)
[2018-10-26] MEDS: Fluticasone Propionate Nasal Spray 16 gm Bottle NASAL SCH (08:57)
[2018-10-26] MEDS: Mometasone Furoate 120 PUFF 220 MCG INH SCH (19:09)
--- NOTE | 2018-10-26 20:33 | PRG ---
DATE OF SERVICE: 10/26/2018 SUBJECTIVE: Mr. Ho is a very pleasant 78-year-old white male. 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 He had fever, chills, shortness of breath and was septic. Etiology was found to be endocarditis with large vegetation in his mitral valve. He was seen in consultation by Dr. Canchola and Dr. Chaves. 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 He is supposed to be finish those on November [address] Canchola' calculations. He was transferred to [facility] for PT/OT and continued IV antibiotics. The patient states he felt poorly last night and had a temperature of 102.9. Blood cultures x2 were done, one on the PICC line, one on the other arm. He states he feels much better after he was given Tylenol and broke his fever. He feels tired today, but otherwise he feels good. He has no complaints today. He is not very hungry, but we will encourage him to eat. OBJECTIVE: VITAL SIGNS: Reveal blood pressure 104/56, pulse 78 to 86, respirations 18 to 24, O2 saturation 95% to 96% on room air, T-max last night 102.9, this morning . PHYSICAL EXAMINATION: GENERAL: This is a well-developed, well-nourished, very pleasant, thin white male, in no apparent distress at this time. HEENT: Normocephalic, nontraumatic cranium. Pupils are equal, round, reactive. Extraocular movements are intact. Nose and throat are slightly dry. NECK: Supple without masses, nodes, or bruits. CHEST: Clear to auscultation. No rales. No rhonchi. No wheezes are heard. HEART: Reveals regular rate and rhythm with a 1/6 systolic ejection murmur. Rate controlled. ABDOMEN: Soft, nontender without organomegaly. Normal bowel sounds are noted in all 4 quadrants. No rebound or guarding is noted. : Deferred. EXTREMITIES: Reveal no clubbing, cyanosis, or edema. The patient states he is very weak. He is sitting up this morning, but states he just feels tired. ASSESSMENT: 1. 102.9 temperature this morning, now resolved. Blood cultures x2 were drawn last night in processing phase. 2. History of endocarditis with enterococcus and large vegetation of the mitral valve. 3. Continue to monitor the patient's atrial fib for rate control. 4. The patient does have a history of coronary artery disease with non-ST myocardial infarction in the recent past. 5. Chronic obstructive pulmonary disease with acute upper respiratory infection recently. 6. Hypertension. 7. Critical illness myopathy. 8. Hyperlipidemia. 9. Urinary retention. 10. Recent splenic infarct. 11. Generalized infarct. 12. Generalized weakness. PLAN: 1. Continue present gentamicin 60 mg q.[address] Canchola' recommendation. 2. Continue ampicillin 2 g q.4 hours. 3. The patient will finish antibiotics on November 02. 4. Anticipate discharge on November 03. 5. Continue blood pressure medications. 6. Stress ulcer prophylaxis. 7. Decubitus precautions. 8. DVT prophylaxis. 9. Continue PT and OT. 10. Continue to monitor the patient for signs and symptoms of CHF. 11. Await blood cultures x2. 12. Laboratories this morning revealed white count was up to 13,000, which is minimally elevated from 12,000. 13. We will contact Dr. Chaves and Dr. Canchola. Job ID: [id number]
[2018-10-26] MEDS: Montelukast Sodium 10 mg Tablet PO SCH (21:02)
[2018-10-26] MEDS: Atorvastatin Calcium 20 MG TAB PO SCH (21:02)
[2018-10-26] MEDS: Megestrol Acetate 400 MG/10 ML UDCUP PO SCH (21:03)
[2018-10-26] MEDS: Famotidine 20 MG TAB PO SCH (21:05)
[2018-10-27] MEDS: Ampicillin 2 GM in Sodium Chloride 0.9% 100 ML IVPB SCH ×6 (00:34→21:11)
[2018-10-27] MEDS: GENTAMICIN IVPB SCH ×2 (00:34→13:20)
[2018-10-27] MEDS: Guaifenesin DM 100-10/5 ML UDCUP PO PRN (04:32)
[2018-10-27] MEDS: Megestrol Acetate 400 MG/10 ML UDCUP PO SCH ×2 (08:41→21:11)
[2018-10-27] MEDS: Saccharomyces boulardii 250 MG CAP PO SCH ×2 (08:42→08:43)
[2018-10-27] MEDS: Potassium Chloride 20 MEQ TAB PO SCH ×2 (08:43→16:27)
[2018-10-27] MEDS: THEOPHYLLINE 200 MG PO SCH ×2 (08:43→21:11)
[2018-10-27] MEDS: Multivitamin W/ Minerals 1 TAB PO SCH (08:44)
[2018-10-27] MEDS: Spironolactone 25 MG TAB PO SCH (08:44)
[2018-10-27] MEDS: Clopidogrel Bisulfate 75 MG TAB PO SCH (08:44)
[2018-10-27] MEDS: Tamsulosin HCl 0.4 MG CAP PO SCH (08:45)
[2018-10-27] MEDS: Pregabalin 75 MG CAP PO SCH (08:45)
[2018-10-27] MEDS: Milk Of Magnesia 30 ML UDCUP PO SCH (08:46)
[2018-10-27] MEDS: Fluticasone Propionate Nasal Spray 16 gm Bottle NASAL SCH (08:46)
[2018-10-27 15:07] LABS: Bilirubin Negative (Negative); Blood, Urine Trace (Negative); Clarity Clear (Clear); Glucose, Urine (Dipstick) Negative (Negative); Leukocyte Negative (Negative); Nitrite Negative (Negative); Protein, Urine (Dipstick) 30 mg/dL (Neg-Trace); Specific Gravity, Urine 1.015 (1.005-1.030); Urobilinogen 0.2 mg/dL (0.2-1.0)
[2018-10-27 15:11] LABS: Urine Culture Reflex No No
[2018-10-27 15:12] LABS: Bacteria/HPF None Seen HPF (None Seen); Squamous Epithelial 0-3 HPF (0-3); WBC/HPF None Seen HPF (0-3)
[2018-10-27] MEDS: Mometasone Furoate 120 PUFF 220 MCG INH SCH (18:31)
--- NOTE | 2018-10-27 19:11 | PRG ---
DATE OF SERVICE: 10/27/2018 SUBJECTIVE: Mr. Ho is a very pleasant 78-year-old white male. He got up in the middle of the night and was noted to have some mental status changes. He had fever, chills, shortness of breath, and was septic. 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 He was seen in the consultation by Dr. Chaves and Dr. Canchola. He was started on IV ampicillin and IV gentamicin. He was supposed to be finished with those on November [address] Canchola' calculations. He was transferred to [facility] for PT, OT, and continued IV antibiotics. The patient states he felt very poorly last night, but he had no temperature. He slept fairly well. Blood culture has still been unremarkable. He did have a blood culture from his PICC line and his other arm. He states he feels tired today, but he did walk fairly well yesterday with therapy. OBJECTIVE: Today reveal, VITAL SIGNS: Blood pressure this morning is 113/59, pulse 86 to 94, respirations 20 to 22, O2 sat 94% to 96% on room air, and T-max 98.2. GENERAL: This is a well-developed, well-nourished, thin white male, in no apparent distress at this time. HEENT: Normocephalic and nontraumatic cranium. Pupils equally round and reactive. Extraocular movements are intact. Nose and throat are slightly dry. NECK: Supple without masses, nodes or bruits. CHEST: Clear to auscultation with occasional cough. No rales, no rhonchi, no wheezes are heard. Breath sounds are little distant. HEART: Regular rate and rhythm with a 1/6 systolic ejection murmur. Rate is controlled. ABDOMEN: Soft and nontender without organomegaly. Normal bowel sounds are noted. : Deferred. EXTREMITIES: No clubbing, cyanosis or edema. The patient is still very weak, but doing fairly well. ASSESSMENT: 1. 102.9 temperature, 2 nights ago. Blood culture drawn, been unremarkable thus far. Endocarditis with enterococcus, large vegetation on the mitral valve. 2. Atrial fibrillation. We will continue to monitor for rate control. 3. Coronary artery disease with [id number] myocardial infarction in the recent past. 4. Chronic obstructive pulmonary disease with acute upper respiratory infection recently. 5. Hypertension. 6. Critical illness myopathy. 7. Hyperlipidemia. 8. Urine tract retention. 9. Recent splenic infarct. 10. Generalized infarcts. 11. Generalized weakness. PLAN: 1. Continue gentamicin at 60 mg q.[address] Canchola' recommendation. 2. Continue ampicillin 2 g q.4. 3. The patient will finish antibiotics on November 02. 4. Anticipate discharge on November 03. 5. Continue blood pressure medication. 6. Continue to monitor the patient's temperature closely. 7. Stress ulcer prophylaxis. 8. Decubitus precautions. 9. DVT prophylaxis. 10. Continue PT and OT. 11. Continue to monitor the patient for signs and symptoms of CHF. 12. Await blood cultures. 13. Continue to monitor closely. Job ID: [id number]
[2018-10-27] MEDS: Montelukast Sodium 10 mg Tablet PO SCH (21:11)
[2018-10-27] MEDS: Atorvastatin Calcium 20 MG TAB PO SCH (21:11)
[2018-10-27] MEDS: Famotidine 20 MG TAB PO SCH (21:11)
[2018-10-28] MEDS: Ampicillin 2 GM in Sodium Chloride 0.9% 100 ML IVPB SCH ×6 (00:38→21:38)
[2018-10-28] MEDS: GENTAMICIN IVPB SCH ×3 (00:38→18:13)
[2018-10-28] MEDS: Potassium Chloride 20 MEQ TAB PO SCH ×2 (08:56→16:21)
[2018-10-28] MEDS: predniSONE 20 MG TAB PO SCH (08:57)
[2018-10-28] MEDS: THEOPHYLLINE 200 MG PO SCH ×2 (08:57→21:42)
[2018-10-28] MEDS: Saccharomyces boulardii 250 MG CAP PO SCH (08:57)
[2018-10-28] MEDS: Spironolactone 25 MG TAB PO SCH (08:57)
[2018-10-28] MEDS: Multivitamin W/ Minerals 1 TAB PO SCH (08:57)
[2018-10-28] MEDS: Clopidogrel Bisulfate 75 MG TAB PO SCH (08:57)
[2018-10-28] MEDS: Tamsulosin HCl 0.4 MG CAP PO SCH (08:58)
[2018-10-28] MEDS: Pregabalin 75 MG CAP PO SCH (08:58)
[2018-10-28] MEDS: Fluticasone Propionate Nasal Spray 16 gm Bottle NASAL SCH (08:58)
[2018-10-28] MEDS: Milk Of Magnesia 30 ML UDCUP PO SCH (08:58)
[2018-10-28] MEDS: Megestrol Acetate 400 MG/10 ML UDCUP PO SCH ×2 (08:58→21:42)
[2018-10-28] MEDS: Mometasone Furoate 120 PUFF 220 MCG INH SCH (18:14)
[2018-10-28] MEDS: Montelukast Sodium 10 mg Tablet PO SCH (21:41)
[2018-10-28] MEDS: Atorvastatin Calcium 20 MG TAB PO SCH (21:42)
[2018-10-28] MEDS: Famotidine 20 MG TAB PO SCH (21:42)
[2018-10-28] MEDS: Melatonin 3 MG TAB PO PRN (21:42)
[2018-10-29] MEDS: Ampicillin 2 GM in Sodium Chloride 0.9% 100 ML IVPB SCH ×7 (00:34→23:48)
[2018-10-29 05:56] LABS: #Basophils 0.1 thou/uL (0.0-0.2); #Eosinphils 0.2 thou/uL (0.0-0.7); #Lymphocytes 1.5 thou/uL (1.20-3.40); #Monocytes 0.7 thou/uL (0.11-0.59); %Basophils 0.5 % (0.0-1.0); %Eosinophils 1.6 % (0.0-10.0); %Lymphocytes 11.9 % (21.0-51.0); %Monocytes 5.8 % (0.0-10.0); %Neutrophils 80.2 % (42.0-75.0); Hemoglobin 7.9 g/dL (14.0-18.0); Mean Corpuscular HGB CONC 33.1 g/dL (32.0-36.0); Mean Corpuscular Volume 87.6 fL (78.0-98.0); Mean Platelet Volume 6.4 fL (7.4-10.4); Platelet Count 421 thou/uL (130-400); RBC Distribution Width 13.5 % (11.5-14.5); Red Blood Cell (RBC) Count 2.72 mill/uL (4.70-6.10); White Blood Cell (WBC) Count 12.5 thou/uL (4.8-10.8)
[2018-10-29 05:59] LABS: ALT (SGPT) 20 U/L (8-55); AST (SGOT) 20 U/L (5-34); Albumin 2.7 g/dL (3.4-4.8); Alkaline Phosphatase 56 U/L (40-150); Anion Gap 14 mmol/L (10-20); BUN (Urea Nitrogen) 20 mg/dL (8.4-25.7); Bilirubin, Total 0.3 mg/dL (0.2-1.2); CRP (Inflammatory) 20.77 mg/dL (= or < 0.5); Calc. Creatinine Clearance 38 mL/min (70-130); Calcium 8.8 mg/dL (7.8-10.44); Carbon Dioxide 21 mmol/L (23-31); Chloride 104 mmol/L (98-107); Estimated GFR-MDRD 46; Globulin 2.8 g/dL (2.4-3.5); Glucose 98 mg/dL (83-110); Potassium 3.3 mmol/L (3.5-5.1); Protein, Total 5.5 g/dL (5.8-8.1); Sodium 136 mmol/L (136-145)
[2018-10-29] MEDS: GENTAMICIN IVPB SCH (06:06)
[2018-10-29] MEDS ORDERED: GENTAMICIN IVPB SCH (08:00)
[2018-10-29] MEDS: THEOPHYLLINE 200 MG PO SCH ×2 (08:45→20:31)
[2018-10-29] MEDS: Megestrol Acetate 400 MG/10 ML UDCUP PO SCH ×2 (08:45→20:31)
[2018-10-29] MEDS: Spironolactone 25 MG TAB PO SCH (08:45)
[2018-10-29] MEDS: Fluticasone Propionate Nasal Spray 16 gm Bottle NASAL SCH (08:45)
[2018-10-29] MEDS: Pregabalin 75 MG CAP PO SCH (08:45)
[2018-10-29] MEDS: Multivitamin W/ Minerals 1 TAB PO SCH (08:46)
[2018-10-29] MEDS: Tamsulosin HCl 0.4 MG CAP PO SCH (08:46)
[2018-10-29] MEDS: Potassium Chloride 20 MEQ TAB PO SCH ×2 (08:46→16:53)
[2018-10-29] MEDS: Clopidogrel Bisulfate 75 MG TAB PO SCH (08:46)
[2018-10-29] MEDS: Saccharomyces boulardii 250 MG CAP PO SCH (08:46)
[2018-10-29] MEDS: Milk Of Magnesia 30 ML UDCUP PO SCH (08:52)
--- NOTE | 2018-10-29 10:36 | PRG ---
DATE OF SERVICE: 10/29/2018 SUBJECTIVE: Mr. Ho is an 78-year-old white male, who was septic with symptoms of fever, chills, shortness of breath, and mental status changes. He was brought to the emergency room and evaluated, found to have endocarditis with enterococcus. He also had a large vegetation on mitral valve. He was seen in consultation by Dr. Canchola and Dr. Chaves and was transferred to [facility] for PT, OT, and IV ampicillin 2 g q.4h and IV gentamicin q.12h. He will finish his antibiotics on 11/02. He will be transferred back home prior to 11/03. The patient states he feels much better today. He is eating better. He feels like he can do more therapy and he is much more responsive today. OBJECTIVE: VITAL SIGNS: Today reveal blood pressure 97/60, pulse 78 to 82, respirations 18 to 20, O2 saturation 94% to 98% on room air. T-max 97.6. GENERAL: This is a well-developed, well-nourished, very pleasant, thin white male, in no apparent distress at this time. HEENT: Normocephalic, nontraumatic cranium. Pupils equal, round, reactive. Extraocular movements are intact. Nose and throat are slightly dry. NECK: Supple without masses, nodes, or bruits. CHEST: Clear to auscultation with occasional cough. No rales, rhonchi. No wheezes are heard. HEART: Reveals a regular rate and rhythm without murmurs, gallops, or rubs. ABDOMEN: Soft, nontender, without organomegaly. Normal bowel sounds are noted. No rebound or guarding is noted. : Deferred. EXTREMITIES: Reveal no clubbing, cyanosis, or edema. The patient continues to be weak, but is much improved. He is looking forward to therapy today. ASSESSMENT: 1. Four nights ago, temperature 102.9. Blood cultures have been unremarkable so far. 2. 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 Presently on 2 g ampicillin q.4 hours and gentamicin 60 mg q.12 hours. 3. Coronary artery disease with [id number] recently. 4. Chronic obstructive pulmonary disease with acute upper respiratory infection, recent. 5. Hypertension. 6. Critical illness myopathy. 7. Urinary retention. 8. Hyperlipidemia. 9. Recent splenic infarct. 10. Generalized weakness. PLAN: 1. Continue present antibiotics. 2. The patient should finish the antibiotics on 01/02. 3. Continue physical therapy and occupational therapy. 4. Continue to monitor the patient's blood pressure closely. 5. Monitor patient's temperature closely. 6. Stress ulcer prophylaxis. 7. Decubitus precautions. 8. Out of bed as much as possible. 9. Monitor the patient for signs and symptoms of CHF. 10. Continue PT and OT. Job ID: [id number]
--- NOTE | 2018-10-29 11:04 | PRG ---
DATE OF SERVICE: 10/28/2018 SUBJECTIVE: Mr. Ho is a very pleasant 78-year-old white male, who had some mental status changes, fever, and chills and was brought to the emergency room. He was found to be septic with endocarditis and a large vegetation on the mitral valve. He was seen in consultation by Dr. Canchola and Dr. Chaves and sent down here for IV ampicillin and IV gentamicin. He will finish those on November 02. He also has had several episodes of extreme weakness. This past Friday, he had a temperature of 102.9. His blood cultures have remained unremarkable with no growth. OBJECTIVE: VITAL SIGNS: Yesterday reveal blood pressure 110/62, pulse 99, respirations 20, O2 saturation 98% on room air, T-max 97.9. GENERAL: This is a well-developed, well-nourished, very thin, almost cachectic, white male, in no apparent distress at this time. HEENT: Reveals normocephalic and nontraumatic cranium. Pupils are equally round and reactive. Extraocular movements are intact. Nose and throat are slightly dry. NECK: Supple without masses, nodes, or bruits. CHEST: Clear to auscultation. No rales, rhonchi, or wheezes are heard. HEART: Reveals a regular rate and rhythm with a 1/6 systolic ejection murmur. Rate controlled, but occasionally, when he is working, it goes up into the 116 to 120s. ABDOMEN: Soft and nontender. Normal bowel sounds noted in all 4 quadrants. No rebound or guarding is noted. : Deferred. EXTREMITIES: Reveal no clubbing, cyanosis, or edema. The patient is still very weak, but actually doing much better and beginning to eat a little bit. ASSESSMENT: 1. Negative blood cultures x2. 2. Endocarditis with Enterococcus, large vegetation on the mitral valve. 3. Atrial fibrillation. 4. Coronary artery disease with [id number] myocardial infarction in the recent past. 5. Chronic obstructive pulmonary disease with acute upper respiratory infection, much improved. 6. Hypertension. 7. Critical illness myopathy. 8. Hyperlipidemia. 9. Urinary tract retention. 10. Recent splenic infarct. 11. Generalized weakness. PLAN: 1. Continue gentamicin 60 mg q.[address] Canchola. His last gentamicin level was 1.6. 2. Continue ampicillin 2 g q.4. 3. The patient will finish the antibiotics the evening of November 02. 4. Anticipate discharge on November 03. 5. Continue to follow the patient's blood pressure closely and adjust medications as needed. 6. Monitor the patient's temperature closely. 7. Stress ulcer prophylaxis. 8. Decubitus precautions. 9. Continue physical therapy and occupational therapy. 10. Continue to monitor the patient for signs and symptoms of CHF. 11. Continue to monitor the blood cultures. Job ID: [id number]
[2018-10-29] MEDS ORDERED: cefTRIAXone\\ROCEPHIN 2 GM in Sodium Chloride 0.9% 100 ML IVPB SCH (16:00)
[2018-10-29] MEDS: Mometasone Furoate 120 PUFF 220 MCG INH SCH (18:17)
[2018-10-29] MEDS: Montelukast Sodium 10 mg Tablet PO SCH (20:31)
[2018-10-29] MEDS: Famotidine 20 MG TAB PO SCH (20:31)
[2018-10-29] MEDS: Atorvastatin Calcium 20 MG TAB PO SCH (20:31)
[2018-10-30] MEDS: Ampicillin 2 GM in Sodium Chloride 0.9% 100 ML IVPB SCH ×5 (04:16→20:03)
[2018-10-30] MEDS: cefTRIAXone\\ROCEPHIN 2 GM in Sodium Chloride 0.9% 100 ML IVPB SCH ×2 (04:54→16:25)
[2018-10-30] MEDS: THEOPHYLLINE 200 MG PO SCH ×2 (08:43→20:06)
[2018-10-30] MEDS: Megestrol Acetate 400 MG/10 ML UDCUP PO SCH ×2 (08:43→20:06)
[2018-10-30] MEDS: Fluticasone Propionate Nasal Spray 16 gm Bottle NASAL SCH (08:43)
[2018-10-30] MEDS: Multivitamin W/ Minerals 1 TAB PO SCH (08:44)
[2018-10-30] MEDS: Spironolactone 25 MG TAB PO SCH (08:44)
[2018-10-30] MEDS: Potassium Chloride 20 MEQ TAB PO SCH ×2 (08:44→16:24)
[2018-10-30] MEDS: Milk Of Magnesia 30 ML UDCUP PO SCH (08:45)
[2018-10-30] MEDS: predniSONE 20 MG TAB PO SCH (08:45)
[2018-10-30] MEDS: Tamsulosin HCl 0.4 MG CAP PO SCH (08:45)
[2018-10-30] MEDS: Clopidogrel Bisulfate 75 MG TAB PO SCH (08:45)
[2018-10-30] MEDS: Pregabalin 75 MG CAP PO SCH (08:46)
[2018-10-30] MEDS: Saccharomyces boulardii 250 MG CAP PO SCH (08:46)
[2018-10-30] MEDS: Mometasone Furoate 120 PUFF 220 MCG INH SCH (18:27)
[2018-10-30] MEDS: Famotidine 20 MG TAB PO SCH (20:06)
[2018-10-30] MEDS: Montelukast Sodium 10 mg Tablet PO SCH (20:06)
[2018-10-30] MEDS: Atorvastatin Calcium 20 MG TAB PO SCH (20:06)
[2018-10-31] MEDS: Ampicillin 2 GM in Sodium Chloride 0.9% 100 ML IVPB SCH ×6 (00:08→20:46)
[2018-10-31] MEDS: cefTRIAXone\\ROCEPHIN 2 GM in Sodium Chloride 0.9% 100 ML IVPB SCH ×2 (04:58→17:55)
[2018-10-31] MEDS: Pregabalin 75 MG CAP PO SCH (08:19)
[2018-10-31] MEDS: Multivitamin W/ Minerals 1 TAB PO SCH (08:20)
[2018-10-31] MEDS: Tamsulosin HCl 0.4 MG CAP PO SCH (08:20)
[2018-10-31] MEDS: Spironolactone 25 MG TAB PO SCH (08:21)
[2018-10-31] MEDS: Megestrol Acetate 400 MG/10 ML UDCUP PO SCH ×2 (08:25→20:46)
[2018-10-31] MEDS: THEOPHYLLINE 200 MG PO SCH ×2 (08:25→20:46)
[2018-10-31] MEDS: Potassium Chloride 20 MEQ TAB PO SCH ×3 (08:54→20:46)
[2018-10-31] MEDS: Fluticasone Propionate Nasal Spray 16 gm Bottle NASAL SCH (09:45)
[2018-10-31] MEDS: Clopidogrel Bisulfate 75 MG TAB PO SCH (09:50)
[2018-10-31] MEDS: Saccharomyces boulardii 250 MG CAP PO SCH (09:53)
[2018-10-31] MEDS: Milk Of Magnesia 30 ML UDCUP PO SCH (09:54)
[2018-10-31] MEDS: Mometasone Furoate 120 PUFF 220 MCG INH SCH (18:52)
--- NOTE | 2018-10-31 19:05 | PRG ---
DATE OF SERVICE: 10/31/2018 SUBJECTIVE: The patient feels well, finishing his antibiotic therapy. Having no cough, shortness of breath, increasing strength and working with physical therapy. The patient has been afebrile now for 5 days with negative blood cultures and finishing his course of ampicillin and gentamicin in 2 days. OBJECTIVE: VITAL SIGNS: Now show him to have temperature 98, pulse 81, respirations 18, O2 sats 98% on room air, blood pressure 119/64. LUNGS: Clear. CARDIAC: Showed regular rhythm with 2/6 holosystolic murmur. ABDOMEN: Soft and nontender with no masses or organomegaly. SKIN/EXTREMITIES: Show no edema, clubbing, cyanosis. LABORATORY DATA: Most recent laboratory showed a white count of 12,500, hematocrit 23, hemoglobin 7.9. BNP is 681. Sodium 136, potassium 3.3, chloride 104, bicarb 21, BUN 20, creatinine 1.46. C-reactive protein is still elevated at 20.77. ASSESSMENT: Enterococcal endocarditis, finishing 8 weeks of antibiotics and 2 days with a recent fever and persistent elevated CRP concerning for persistent infection, although the patient is feeling well. PLAN: Discussed discharge planning with Dr. Ryder tomorrow. Continue IV ampicillin. Repeat basic metabolic profile and CRP, CMP in 2 days. Increase potassium to 20 mEq t.i.d. because of persistent hypokalemia. Job ID: [id number]
[2018-10-31] MEDS: Montelukast Sodium 10 mg Tablet PO SCH (20:46)
[2018-10-31] MEDS: Famotidine 20 MG TAB PO SCH (20:46)
[2018-10-31] MEDS: Atorvastatin Calcium 20 MG TAB PO SCH (20:46)
[2018-11-01] MEDS: Ampicillin 2 GM in Sodium Chloride 0.9% 100 ML IVPB SCH ×7 (00:23→23:42)
[2018-11-01] MEDS: cefTRIAXone\\ROCEPHIN 2 GM in Sodium Chloride 0.9% 100 ML IVPB SCH ×2 (04:14→17:02)
[2018-11-01] MEDS: Potassium Chloride 20 MEQ TAB PO SCH ×3 (09:00→20:19)
[2018-11-01] MEDS: Multivitamin W/ Minerals 1 TAB PO SCH (09:00)
[2018-11-01] MEDS: Spironolactone 25 MG TAB PO SCH (09:00)
[2018-11-01] MEDS: Tamsulosin HCl 0.4 MG CAP PO SCH (09:00)
[2018-11-01] MEDS: Pregabalin 75 MG CAP PO SCH (09:01)
[2018-11-01] MEDS: Megestrol Acetate 400 MG/10 ML UDCUP PO SCH ×2 (09:01→20:19)
[2018-11-01] MEDS: predniSONE 20 MG TAB PO SCH (09:02)
[2018-11-01] MEDS: Clopidogrel Bisulfate 75 MG TAB PO SCH (09:02)
[2018-11-01] MEDS: Milk Of Magnesia 30 ML UDCUP PO SCH (09:04)
[2018-11-01] MEDS: Fluticasone Propionate Nasal Spray 16 gm Bottle NASAL SCH (09:04)
[2018-11-01] MEDS: Saccharomyces boulardii 250 MG CAP PO SCH (09:05)
[2018-11-01] MEDS: THEOPHYLLINE 200 MG PO SCH ×2 (09:05→20:19)
--- NOTE | 2018-11-01 09:49 | PRG ---
DATE OF SERVICE: 11/01/2018 SUBJECTIVE: The patient feels well, lying in the bed, waiting for breakfast, slept well through the night with no shortness of breath or chest pain, only complains of nocturia secondary to IV fluids given throughout the night. OBJECTIVE: VITAL SIGNS: Temperature is 97, pulse 77, respirations 18, O2 saturations 99% on room air, and blood pressure 114/60. LUNGS: Clear. CARDIAC: Showed regular rhythm with 2/6 systolic ejection murmur heard over the entire chest. ABDOMEN: Soft and nontender. ASSESSMENT: 1. Resolving enterococcal endocarditis with no fever for the last 5 days. He has normal culture and finishing 8 weeks of antibiotics, however, concern for elevated CRP, and we will discuss with Dr. Ryder and Dr. Canchola. 2. Hypokalemia, persistent, and he has had potassium increased to 20 mEq 3 times a day and will have repeat laboratories in the a.m. Job ID: [id number]
[2018-11-01] MEDS: Mometasone Furoate 120 PUFF 220 MCG INH SCH (18:15)
[2018-11-01] MEDS: Montelukast Sodium 10 mg Tablet PO SCH (20:19)
[2018-11-01] MEDS: Famotidine 20 MG TAB PO SCH (20:19)
[2018-11-01] MEDS: Atorvastatin Calcium 20 MG TAB PO SCH (20:19)
[2018-11-02] MEDS: Ampicillin 2 GM in Sodium Chloride 0.9% 100 ML IVPB SCH ×5 (04:00→20:51)
[2018-11-02] MEDS: cefTRIAXone\\ROCEPHIN 2 GM in Sodium Chloride 0.9% 100 ML IVPB SCH ×2 (04:46→16:37)
[2018-11-02 05:12] LABS: #Basophils 0.1 thou/uL (0.0-0.2); #Eosinphils 0.1 thou/uL (0.0-0.7); #Lymphocytes 1.5 thou/uL (1.20-3.40); #Monocytes 0.9 thou/uL (0.11-0.59); #Neutrophils 9.7 thou/uL (1.40-6.50); %Basophils 0.8 % (0.0-1.0); %Eosinophils 0.7 % (0.0-10.0); %Lymphocytes 12.2 % (21.0-51.0); %Monocytes 7.5 % (0.0-10.0); %Neutrophils 78.8 % (42.0-75.0); Hemoglobin 8.6 g/dL (14.0-18.0); Mean Corpuscular Hemoglobin 29.2 pg (27.0-31.0); Mean Corpuscular Volume 88.3 fL (78.0-98.0); Mean Platelet Volume 5.5 fL (7.4-10.4); Platelet Count 483 thou/uL (130-400); RBC Distribution Width 14.2 % (11.5-14.5); Red Blood Cell (RBC) Count 2.95 mill/uL (4.70-6.10); White Blood Cell (WBC) Count 12.3 thou/uL (4.8-10.8)
[2018-11-02 05:32] LABS: ALT (SGPT) 19 U/L (8-55); AST (SGOT) 20 U/L (5-34); Albumin 2.9 g/dL (3.4-4.8); Alkaline Phosphatase 56 U/L (40-150); Anion Gap 12 mmol/L (10-20); BUN (Urea Nitrogen) 20 mg/dL (8.4-25.7); Bilirubin, Total 0.2 mg/dL (0.2-1.2); CRP (Inflammatory) 3.45 mg/dL (= or < 0.5); Calc. Creatinine Clearance 42 mL/min (70-130); Carbon Dioxide 19 mmol/L (23-31); Chloride 109 mmol/L (98-107); Estimated GFR-MDRD 51; Globulin 2.8 g/dL (2.4-3.5); Glucose 130 mg/dL (83-110); Potassium 4.4 mmol/L (3.5-5.1); Protein, Total 5.7 g/dL (5.8-8.1); Sodium 136 mmol/L (136-145)
[2018-11-02] MEDS: Potassium Chloride 20 MEQ TAB PO SCH ×3 (07:58→20:54)
[2018-11-02] MEDS: Spironolactone 25 MG TAB PO SCH (07:58)
[2018-11-02] MEDS: Clopidogrel Bisulfate 75 MG TAB PO SCH (08:00)
[2018-11-02] MEDS: THEOPHYLLINE 200 MG PO SCH ×2 (08:00→20:54)
[2018-11-02] MEDS: Tamsulosin HCl 0.4 MG CAP PO SCH (08:00)
[2018-11-02] MEDS: Multivitamin W/ Minerals 1 TAB PO SCH (08:00)
[2018-11-02] MEDS: Pregabalin 75 MG CAP PO SCH (08:00)
[2018-11-02] MEDS: Saccharomyces boulardii 250 MG CAP PO SCH (08:01)
[2018-11-02] MEDS: Megestrol Acetate 400 MG/10 ML UDCUP PO SCH ×2 (08:02→20:54)
[2018-11-02] MEDS: Milk Of Magnesia 30 ML UDCUP PO SCH (08:03)
[2018-11-02] MEDS: Fluticasone Propionate Nasal Spray 16 gm Bottle NASAL SCH (08:09)
[2018-11-02] MEDS: Mometasone Furoate 120 PUFF 220 MCG INH SCH (17:59)
--- NOTE | 2018-11-02 20:04 | PRG ---
DATE OF SERVICE: 11/02/2018 SUBJECTIVE: Mr. Ho is an 78-year-old white male, who was brought to the hospital with fever, chills, shortness of breath, and mental status changes. 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 He had a large vegetation on the mitral valve. He was seen in consultation by Dr. Canchola and Dr. Chaves. He was stabilized and transferred to [facility] for physical therapy and occupational therapy and IV antibiotics. He will finish his antibiotics tonight. He continues to have physical therapy and occupational therapy, but is somewhat weak this morning. After significant discussion, we did push his discharge date back from Friday to Friday, from tomorrow to the next day. The patient feels better about that, so he can get a little bit more therapy, and will be so cold. Supposed to be in the low teens tomorrow morning. OBJECTIVE: VITAL SIGNS: Reveal blood pressure this morning 120/71, pulse 96 to 98, respirations 18, O2 saturation 97.6. GENERAL: He is a well-developed, well-nourished, very pleasant 78-year-old white male, in no apparent distress at this time. HEENT: Normocephalic and nontraumatic cranium. Pupils are equally round and reactive. Extraocular movements are intact. Nose and throat are slightly dry. NECK: Supple without masses, nodes, or bruits. CHEST: Clear to auscultation. No rales, rhonchi, wheezes, or cough are heard today. HEART: Reveals a regular rate and rhythm without murmurs, gallops, or rubs. ABDOMEN: Soft and nontender without organomegaly. Normal bowel sounds are noted. No rebound or guarding is noted. : Deferred. EXTREMITIES: Reveal no clubbing, cyanosis, or edema. The patient has weakness about more than over the weekend. He did not get up out of bed much at all. He is looking forward to therapy today to get stronger, so he can go home on Friday. ASSESSMENT: 1. 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 2. Coronary artery disease with elevation recently. 3. Chronic obstructive pulmonary disease with acute upper respiratory infection recently. 4. Hypertension. 5. Urinary retention. 6. Critical illness myopathy. 7. Hyperlipidemia. 8. Recent splenic infarct. 9. Generalized weakness. PLAN: 1. The patient will finish his antibiotics tonight. 2. Continue PT and OT. 3. Continue to monitor the patient's blood pressure closely. 4. Monitor the patient's temperature closely. 5. Stress ulcer prophylaxis. 6. Decubitus precautions. 7. Encourage the patient to be out of bed as much as possible. 8. Monitor the patient for signs and symptoms of congestive heart failure. 9. Physical therapy for an extra day. 10. Expect discharge on Friday. Job ID: [id number]
[2018-11-02] MEDS: Montelukast Sodium 10 mg Tablet PO SCH (20:54)
[2018-11-02] MEDS: Atorvastatin Calcium 20 MG TAB PO SCH (20:54)
[2018-11-02] MEDS: Famotidine 20 MG TAB PO SCH (20:54)
[2018-11-03] MEDS: Clopidogrel Bisulfate 75 MG TAB PO SCH (08:44)
[2018-11-03] MEDS: Pregabalin 75 MG CAP PO SCH (08:44)
[2018-11-03] MEDS: Tamsulosin HCl 0.4 MG CAP PO SCH (08:44)
[2018-11-03] MEDS: predniSONE 20 MG TAB PO SCH (08:45)
[2018-11-03] MEDS: Potassium Chloride 20 MEQ TAB PO SCH ×3 (08:45→20:40)
[2018-11-03] MEDS: Multivitamin W/ Minerals 1 TAB PO SCH (08:45)
[2018-11-03] MEDS: Megestrol Acetate 400 MG/10 ML UDCUP PO SCH ×2 (08:45→20:40)
[2018-11-03] MEDS: Spironolactone 25 MG TAB PO SCH (08:45)
[2018-11-03] MEDS: THEOPHYLLINE 200 MG PO SCH ×2 (08:45→20:46)
[2018-11-03] MEDS: Milk Of Magnesia 30 ML UDCUP PO SCH (08:46)
[2018-11-03] MEDS: Fluticasone Propionate Nasal Spray 16 gm Bottle NASAL SCH (08:46)
[2018-11-03] MEDS: Saccharomyces boulardii 250 MG CAP PO SCH (08:46)
--- NOTE | 2018-11-03 10:34 | PRG ---
DATE OF SERVICE: 11/03/2018 SUBJECTIVE: Mr. Ho is an 78-year-old white male, who was brought to the emergency room with fever, chills, shortness of breath, and mental status changes. He was found to be septic with Enterococcus growing on heart valve. He had a large vegetation on the mitral valve. He was seen in consultation by Dr. Canchola and Dr. Chaves. He was stabilized and transferred to [facility]. He finished his last antibiotics last night. Last week, he was ill, but is now much improved. He is cognitively much better. He is able to follow his instructions. He was walking yesterday, but he continues to have balance problems. He declines being able to stay any longer. 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 He is agreeable to coming to outpatient physical therapy and outpatient occupational therapy if he does not have a high co-pay. OBJECTIVE: VITAL SIGNS: Today reveal blood pressure 144/81, pulse 75-86, respirations 20, O2 saturation 96% to 97% on room air, and T-max 97.5. GENERAL: He is a well-developed, well-nourished, thin white male, in no apparent distress at this time. HEENT: Normocephalic and nontraumatic cranium. Pupils equally round and reactive. Extraocular movements are intact. Nose and throat are slightly dry, but clear. NECK: Supple without masses, nodes, or bruits. CHEST: Clear to auscultation. No rales, rhonchi, wheezes, or cough heard at this time. HEART: A regular rate and rhythm without murmurs, gallops, or rubs. ABDOMEN: Soft, nontender, and scaphoid without organomegaly. Normal bowel sounds are heard in all 4 quadrants. No rebound or guarding is noted. : Deferred. EXTREMITIES: No clubbing, cyanosis, or edema. The patient has balance problems, but is much improved. He did walk 196 feet twice yesterday, but he continues in a contact guard assistance. ASSESSMENT: 1. Endocarditis with Enterococcus, large vegetation on the mitral valve. The patient has finished his IV antibiotics. 2. Coronary artery disease with recent cardiac enzyme elevation. 3. Chronic obstructive pulmonary disease with recent acute upper respiratory infection. 4. Hypertension. 5. Urinary retention. 6. Critical illness myopathy. 7. Hyperlipidemia. 8. Recent splenic infarcts. 9. Generalized weakness. PLAN: 1. The patient is to be discharged tomorrow. He will not stay for any further therapy. 2. The patient will be referred to outpatient physical therapy and occupational therapy here. 3. Continue to monitor the patient's blood pressure. 4. Monitor the patient's temperature. 5. Stress ulcer prophylaxis. 6. Decubitus precautions. 7. Encourage the patient to be out of bed as much as possible. 8. Monitor the patient for signs and symptoms of congestive heart failure. 9. Physical therapy and occupational therapy. 10. Expect discharge next Friday. 11. Make the patient to appoint with Dr. Canchola for followup. 12. Make an appointment with Dr. Montez Chaves for followup of his cardiology. Job ID: [id number]
[2018-11-03] MEDS: Mometasone Furoate 120 PUFF 220 MCG INH SCH (18:10)
[2018-11-03] MEDS: Montelukast Sodium 10 mg Tablet PO SCH (20:41)
[2018-11-03] MEDS: Atorvastatin Calcium 20 MG TAB PO SCH (20:41)
[2018-11-03] MEDS: Famotidine 20 MG TAB PO SCH (20:41)
[2018-11-04] MEDS: Megestrol Acetate 400 MG/10 ML UDCUP PO SCH (08:28)
[2018-11-04] MEDS: Potassium Chloride 20 MEQ TAB PO SCH (08:28)
[2018-11-04] MEDS: Clopidogrel Bisulfate 75 MG TAB PO SCH (08:29)
[2018-11-04] MEDS: Spironolactone 25 MG TAB PO SCH (08:29)
[2018-11-04] MEDS: Tamsulosin HCl 0.4 MG CAP PO SCH (08:29)
[2018-11-04] MEDS: Multivitamin W/ Minerals 1 TAB PO SCH (08:29)
[2018-11-04] MEDS: THEOPHYLLINE 200 MG PO SCH (08:30)
[2018-11-04] MEDS: Saccharomyces boulardii 250 MG CAP PO SCH (08:30)
[2018-11-04] MEDS: Pregabalin 75 MG CAP PO SCH (08:32)
[2018-11-04] MEDS: Milk Of Magnesia 30 ML UDCUP PO SCH (08:34)
[2018-11-04] MEDS: Fluticasone Propionate Nasal Spray 16 gm Bottle NASAL SCH (08:34)
--- NOTE | 2018-11-04 12:40 | DIS ---
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 He unfortunately developed fever, chills, shortness of breath and mental status changes and was brought to the emergency room. He was found to be septic and was growing enterococcus in his blood. He also was noted to have a large vegetation on his mitral valve. He was seen in consultation by Dr. Canchola and Dr. Chaves and was started on ampicillin and gentamicin. He was recently switched over to Rocephin and finished that last night. The patient is actually much improved and feeling much better, but he is still very weak, but he insists on going home today. His balance is not very good, but he is walking about 190 feet. He declines to stay any longer, and therefore, he will be discharged. The patient will initially start with home health physical therapy and occupational therapy for 2 weeks. This is because his daughter is not able to be around for the next 2 weeks and he cannot find a ride into town. After 2 weeks, he will be transitioned to outpatient physical therapy and occupational therapy at [facility] for another approximately 4 weeks. PHYSICAL EXAMINATION: VITAL SIGNS: Today reveal blood pressure 119/70, pulse is 93 to 92, respirations 20, O2 saturation 96% to 98% on room air and temperature max 98.2. GENERAL: This is a well-developed, well-nourished, very pleasant, thin white male, in no apparent distress at this time. He states he is ready and wants to go home and he is not going take no as an answer. HEENT: Reveals normocephalic and nontraumatic cranium. Pupils are equally round and reactive. Extraocular movements are intact. Nose and throat are moist. NECK: Supple without masses, nodes or bruits. CHEST: Clear to auscultation. No rales, rhonchi, wheezes, or cough is heard. HEART: Reveals a regular rate and rhythm without murmurs, gallops, or rubs. ABDOMEN: Soft, nontender, scaphoid. No organomegaly is noted. Normal bowel sounds are heard in all 4 quadrants. No rebound or guarding is noted. : Deferred. The patient denies constipation. EXTREMITIES: Reveal no clubbing or cyanosis. Just generalized weakness. The patient does have balance problems, but is able to walk 196 feet. He is to always walk with his walker and always have his cellphone with him. He is to be discharged to the care of his daughter this afternoon at approximately 1 o'clock. DISCHARGE MEDICATIONS: Will include the followin. Tylenol p.r.n. 2. Ventolin q.4 p.r.n. 3. DuoNeb b.i.d. and p.r.n. 4. Lipitor 20 mg at bedtime. 5. Dulcolax p.r.n. constipation. 6. Tums p.r.n. indigestion. 7. Plavix 75 mg a day. 8. Cardizem 180 mg daily. 9. Pepcid 20 mg daily. 10. Nasal spray 1 spray each nostril daily. 11. Robitussin-DM p.r.n. 12. Multivitamin p.r.n. 13. Imodium p.r.n. diarrhea. 14. Milk of magnesia p.r.n. constipation. 15. Melatonin 10 mg p.r.n. insomnia and that is an naen-sjt-sduobsn medicine. 16. Asmanex 1 puff daily. 17. Singulair 10 mg at bedtime. 18. MiraLAX p.r.n. constipation. 19. K-Dur 20 mEq once a day. 20. Prednisone 10 mg every other day. 21. Lyrica 75 mg daily. 22. Systane eye drops p.r.n. 23. Spironolactone 12.5 mg daily. 24. Flomax 0.4 mg daily. 25. Theophylline-24, 400 mg twice a day. ASSESSMENT: 1. Endocarditis with Enterococcus, status post finishing the IV antibiotics last night. 2. Large vegetation on the mitral valve. 3. Coronary artery disease with recent cardiac enzyme elevation. 4. Chronic obstructive pulmonary disease with recent acute upper respiratory infection. 5. Hypertension. 6. Occasional urinary retention. 7. Critical illness myopathy. 8. Hyperlipidemia. 9. Recent splenic infarcts. 10. Generalized weakness. PLAN: 1. The patient is to be discharged today. 2. The patient's daughter will pick him up and bring him to their home. The patient will have home health physical therapy and occupational therapy for 2 weeks. 3. After that, the patient will be transitioned to outpatient physical therapy, where he can get a little bit more aggressive physical therapy. 4. Continue to monitor the patient closely. 5. If the patient is walking, he should always walk with his walker and the patient should always have his cellphone available. 6. The patient should stay warm. 7. The patient will be monitored for signs and symptoms of congestive heart failure. 8. The patient will be followed up by Dr. Canchola within a month. 9. The patient will be followed up by Dr. Chaves at his discretion. 10. I would like to see the patient in my office in the next 2 to 3 weeks. The patient or family is supposed to call with any problems. Took greater than 30 jerrod discharge this patient. Job ID: [id number] [id number]
[2018-11-04 13:35] VITALS: BP 112/64; TEMP 97.9
== END 2018-11-04 13:53 | disposition home health service (06) | DRG 289 ==
LOC: NAV ACUTE 13:02
PROVIDERS: ADMIT Family Medicine; ATTEND Family Medicine
DX: I33.0 Acute and subacute infective endocarditis (principal); G72.81 Critical illness myopathy; T82.6XXA Infection and inflammatory reaction due to cardiac valve prosthesis, initial encounter; Z95.2 Presence of prosthetic heart valve; B95.2 Enterococcus as the cause of diseases classified elsewhere; R53.1 Weakness; E87.6 Hypokalemia; Z79.2 Long term (current) use of antibiotics; R33.9 Retention of urine, unspecified; I10 Essential (primary) hypertension; I48.2 Chronic atrial fibrillation; M81.0 Age-related osteoporosis without current pathological fracture; J44.9 Chronic obstructive pulmonary disease, unspecified; I25.10 Atherosclerotic heart disease of native coronary artery without angina pectoris; I25.2 Old myocardial infarction; E78.00 Pure hypercholesterolemia, unspecified; Z86.79 Personal history of other diseases of the circulatory system; Z87.891 Personal history of nicotine dependence; Y83.1 Surgical operation with implant of artificial internal device as the cause of abnormal reaction of the patient, or of later complication, without mention of misadventure at the time of the procedure
CPT/HCPCS: 36415; 71045; 71046; 80048; 80053; 80170; 81001; 83880; 85025; 85652; 86140; 87040; 87086; 87804; 94640; J0290; J0696; J1580; J1940; J7050; J7611; J7620

== ENCOUNTER 2021-01-20 16:21 | Inpatient (IN) | payer MEDICARE, OTHER ==
[2021-01-20] MEDS ORDERED: Ondansetron ODT 4 MG TAB PO PRN (20:29)
[2021-01-20] MEDS ORDERED: Bisacodyl 5 MG TAB PO PRN (20:29)
[2021-01-20] MEDS ORDERED: Senokot S 8.6-50 MG TAB PO PRN (20:29)
[2021-01-20] MEDS ORDERED: Calcium Carbonate 500 MG ChewTAB PO PRN ×2 (20:29)
[2021-01-20] MEDS ORDERED: Artificial Tear Sol 15 ML BOT EA EYE PRN (20:29)
[2021-01-20] MEDS ORDERED: Eucerin (Mineral Oil/Petrolatum,White) 30 gm Jar TOP PRN (20:29)
[2021-01-20] MEDS ORDERED: Loperamide HCl 2 MG CAP PO PRN ×2 (20:29)
[2021-01-20] MEDS ORDERED: Cepastat Lozenges 1 LOZ PO PRN (20:29)
[2021-01-20] MEDS ORDERED: Melatonin 3 MG TAB PO PRN (20:35)
[2021-01-20] MEDS ORDERED: cefTRIAXone\\ROCEPHIN 2 GM VIAL IVPB SCH (20:45)
[2021-01-20] MEDS ORDERED: Non-Formulary Item 1 EACH (Budesonide [Pulmicort Flexhaler] 180 MCG Inhaler) INH SCH (21:00)
[2021-01-20] MEDS ORDERED: Albuterol Sulfate 2.5 mg/3 ml Neb NEB SCH (21:00)
[2021-01-20] MEDS: Polyethylene Glycol OPTH DROP 15 ML BOT EA EYE SCH (21:39)
[2021-01-20] MEDS: Montelukast Sodium 10 mg Tablet PO SCH (21:40)
[2021-01-20] MEDS: Atorvastatin Calcium 20 MG TAB PO SCH (21:40)
[2021-01-20] MEDS: cefTRIAXone\\ROCEPHIN 2 GM in Sodium Chloride 0.9% 100 ML IVPB SCH (22:05)
[2021-01-20] MEDS: Mometasone Furoate 120 PUFF 220 MCG INH SCH (22:05)
[2021-01-21] MEDS: Ipratropium Bromide 2.5 ml Neb NEB SCH ×4 (00:29→18:20)
[2021-01-21] MEDS: Levothyroxine Sodium 25 MCG TAB PO SCH (05:37)
[2021-01-21 06:04] LABS: #Basophils 0.1 thou/uL (0.0-0.2); #Eosinphils 0.4 thou/uL (0.0-0.7); #Lymphocytes 1.4 thou/uL (1.20-3.40); #Monocytes 0.8 thou/uL (0.11-0.59); #Neutrophils 7.4 thou/uL (1.40-6.50); %Basophils 1.1 % (0.0-1.0); %Eosinophils 4.1 % (0.0-10.0); %Lymphocytes 13.8 % (21.0-51.0); %Monocytes 7.8 % (0.0-10.0); %Neutrophils 73.1 % (42.0-75.0); Mean Corpuscular HGB CONC 31.1 g/dL (32.0-36.0); Mean Corpuscular Hemoglobin 30.9 pg (27.0-31.0); Mean Corpuscular Volume 99.2 fL (78.0-98.0); Mean Platelet Volume 7.8 fL (7.4-10.4); Platelet Count 280 thou/uL (130-400); RBC Distribution Width 13.5 % (11.5-14.5); Red Blood Cell (RBC) Count 4.55 mill/uL (4.70-6.10); White Blood Cell (WBC) Count 10.1 thou/uL (4.8-10.8)
[2021-01-21 06:10] LABS: Anion Gap 14 mmol/L (10-20); BUN (Urea Nitrogen) 12 mg/dL (8.4-25.7); Calc. Creatinine Clearance 72 mL/min (70-130); Calcium 8.5 mg/dL (7.8-10.44); Chloride 103 mmol/L (98-107); Glucose 97 mg/dL (83-110); Sodium 136 mmol/L (136-145)
[2021-01-21 06:51] LABS: Carbon Dioxide 23 mmol/L (23-31)
[2021-01-21] MEDS ORDERED: PROPYLENE GLYCOL EA EYE SCH (09:00)
[2021-01-21] MEDS ORDERED: THEOPHYLLINE 200 MG PO SCH ×2 (09:00→10:15)
[2021-01-21] MEDS: Pregabalin 75 MG CAP PO SCH (09:29)
[2021-01-21] MEDS: Clopidogrel Bisulfate 75 MG TAB PO SCH (09:29)
[2021-01-21] MEDS: Albuterol Sulfate 2.5 mg/3 ml Neb NEB SCH ×2 (09:29→20:55)
[2021-01-21] MEDS: Spironolactone 25 MG TAB PO SCH (09:30)
[2021-01-21] MEDS: Polyethylene Glycol OPTH DROP 15 ML BOT EA EYE SCH ×2 (09:31→20:57)
[2021-01-21] MEDS: Tamsulosin HCl 0.4 MG CAP PO SCH (09:31)
[2021-01-21] MEDS: Mometasone Furoate 120 PUFF 220 MCG INH SCH ×4 (09:32→20:55)
[2021-01-21] MEDS: Fluticasone Propionate Nasal Spray 16 gm Bottle NASAL SCH (09:47)
[2021-01-21] MEDS: cefTRIAXone\\ROCEPHIN 2 GM in Sodium Chloride 0.9% 100 ML IVPB SCH (20:56)
[2021-01-21] MEDS: Atorvastatin Calcium 20 MG TAB PO SCH (20:57)
[2021-01-21] MEDS: Montelukast Sodium 10 mg Tablet PO SCH (20:57)
[2021-01-21] MEDS: THEOPHYLLINE 100 MG PO SCH (21:03)
[2021-01-22] MEDS: Ipratropium Bromide 2.5 ml Neb NEB SCH ×4 (00:08→17:08)
[2021-01-22] MEDS: Levothyroxine Sodium 25 MCG TAB PO SCH (05:41)
[2021-01-22] MEDS: Polyethylene Glycol OPTH DROP 15 ML BOT EA EYE SCH ×2 (08:49→21:22)
[2021-01-22] MEDS: Fluticasone Propionate Nasal Spray 16 gm Bottle NASAL SCH (08:50)
[2021-01-22] MEDS: Albuterol Sulfate 2.5 mg/3 ml Neb NEB SCH ×2 (08:50→21:24)
[2021-01-22] MEDS: Mometasone Furoate 120 PUFF 220 MCG INH SCH ×4 (08:51→21:21)
[2021-01-22] MEDS: Tamsulosin HCl 0.4 MG CAP PO SCH (08:52)
[2021-01-22] MEDS: Pregabalin 75 MG CAP PO SCH (08:52)
[2021-01-22] MEDS: Spironolactone 25 MG TAB PO SCH (08:52)
[2021-01-22] MEDS: Clopidogrel Bisulfate 75 MG TAB PO SCH (08:52)
[2021-01-22] MEDS: THEOPHYLLINE 100 MG PO SCH ×2 (08:53→21:22)
[2021-01-22] MEDS ORDERED: Sodium Chloride 0.9% 10 ML ONE (20:30)
[2021-01-22] MEDS: Atorvastatin Calcium 20 MG TAB PO SCH (21:21)
[2021-01-22] MEDS: Montelukast Sodium 10 mg Tablet PO SCH (21:21)
[2021-01-22] MEDS: cefTRIAXone\\ROCEPHIN 2 GM in Sodium Chloride 0.9% 100 ML IVPB SCH (21:23)
[2021-01-23] MEDS: Ipratropium Bromide 2.5 ml Neb NEB SCH ×5 (00:48→23:59)
[2021-01-23] MEDS: Levothyroxine Sodium 25 MCG TAB PO SCH (05:45)
[2021-01-23] MEDS: Polyethylene Glycol OPTH DROP 15 ML BOT EA EYE SCH ×2 (08:46→20:54)
[2021-01-23] MEDS: Fluticasone Propionate Nasal Spray 16 gm Bottle NASAL SCH (08:46)
[2021-01-23] MEDS: Albuterol Sulfate 2.5 mg/3 ml Neb NEB SCH ×2 (08:46→20:55)
[2021-01-23] MEDS: Tamsulosin HCl 0.4 MG CAP PO SCH (08:47)
[2021-01-23] MEDS: Clopidogrel Bisulfate 75 MG TAB PO SCH (08:47)
[2021-01-23] MEDS: Mometasone Furoate 120 PUFF 220 MCG INH SCH ×4 (08:47→20:53)
[2021-01-23] MEDS: Pregabalin 75 MG CAP PO SCH (08:47)
[2021-01-23] MEDS: Spironolactone 25 MG TAB PO SCH (08:48)
[2021-01-23] MEDS: THEOPHYLLINE 100 MG PO SCH (09:04)
[2021-01-23] MEDS ORDERED: THEOPHYLLINE 200 MG PO SCH (09:45)
[2021-01-23] MEDS ORDERED: Lidocaine 5% Patch TD SCH (12:00)
[2021-01-23] MEDS: cefTRIAXone\\ROCEPHIN 2 GM in Sodium Chloride 0.9% 100 ML IVPB SCH (20:53)
[2021-01-23] MEDS: THEOPHYLLINE 200 MG PO SCH (20:55)
[2021-01-23] MEDS: Atorvastatin Calcium 20 MG TAB PO SCH (20:55)
[2021-01-23] MEDS: Montelukast Sodium 10 mg Tablet PO SCH (20:56)
[2021-01-23] MEDS ORDERED: LIDOCAINE Patch Removal TOP PRN (23:59)
[2021-01-24 05:13] LABS: Red Blood Cell (RBC) Count 4.44 mill/uL (4.70-6.10); White Blood Cell (WBC) Count 10.1 thou/uL (4.8-10.8)
[2021-01-24 05:14] LABS: #Basophils 0.1 thou/uL (0.0-0.2); #Eosinphils 0.3 thou/uL (0.0-0.7); #Lymphocytes 1.4 thou/uL (1.20-3.40); #Monocytes 1.1 thou/uL (0.11-0.59); #Neutrophils 7.1 thou/uL (1.40-6.50); %Basophils 0.9 % (0.0-1.0); %Eosinophils 2.9 % (0.0-10.0); %Monocytes 11.3 % (0.0-10.0); %Neutrophils 70.8 % (42.0-75.0); Manual Diff?? NO; Mean Corpuscular HGB CONC 31.7 g/dL (32.0-36.0); Mean Corpuscular Hemoglobin 31.6 pg (27.0-31.0); Mean Corpuscular Volume 99.8 fL (78.0-98.0); Mean Platelet Volume 6.9 fL (7.4-10.4); Platelet Count 347 thou/uL (130-400); RBC Distribution Width 13.5 % (11.5-14.5)
[2021-01-24 05:24] LABS: Anion Gap 13 mmol/L (10-20); BUN (Urea Nitrogen) 15 mg/dL (8.4-25.7); Calc. Creatinine Clearance 72 mL/min (70-130); Calcium 8.5 mg/dL (7.8-10.44); Chloride 102 mmol/L (98-107); Potassium 3.6 mmol/L (3.5-5.1); Sodium 136 mmol/L (136-145)
[2021-01-24] MEDS: Levothyroxine Sodium 25 MCG TAB PO SCH (05:25)
[2021-01-24] MEDS: Ipratropium Bromide 2.5 ml Neb NEB SCH ×3 (05:26→17:54)
[2021-01-24 05:27] LABS: Carbon Dioxide 25 mmol/L (23-31)
[2021-01-24 05:28] LABS: Glucose 101 mg/dL (83-110)
[2021-01-24] MEDS: Tamsulosin HCl 0.4 MG CAP PO SCH (08:34)
[2021-01-24] MEDS: THEOPHYLLINE 200 MG PO SCH ×2 (08:35→20:41)
[2021-01-24] MEDS: Pregabalin 75 MG CAP PO SCH (08:35)
[2021-01-24] MEDS: Clopidogrel Bisulfate 75 MG TAB PO SCH (08:35)
[2021-01-24] MEDS: Fluticasone Propionate Nasal Spray 16 gm Bottle NASAL SCH (08:36)
[2021-01-24] MEDS: Albuterol Sulfate 2.5 mg/3 ml Neb NEB SCH ×2 (08:36→20:41)
[2021-01-24] MEDS: Polyethylene Glycol OPTH DROP 15 ML BOT EA EYE SCH ×2 (08:37→20:42)
[2021-01-24] MEDS: Mometasone Furoate 120 PUFF 220 MCG INH SCH ×4 (08:37→20:40)
[2021-01-24] MEDS: Spironolactone 25 MG TAB PO SCH (12:32)
[2021-01-24] MEDS ORDERED: Spironolactone 25 MG TAB PO SCH (14:15)
[2021-01-24] MEDS: Lidocaine 5% Patch TD PRN (14:54)
[2021-01-24] MEDS: Montelukast Sodium 10 mg Tablet PO SCH (20:41)
[2021-01-24] MEDS: Atorvastatin Calcium 20 MG TAB PO SCH (20:41)
[2021-01-24] MEDS: cefTRIAXone\\ROCEPHIN 2 GM in Sodium Chloride 0.9% 100 ML IVPB SCH (20:42)
[2021-01-25] MEDS: Ipratropium Bromide 2.5 ml Neb NEB SCH ×5 (05:32→23:34)
[2021-01-25] MEDS: Levothyroxine Sodium 25 MCG TAB PO SCH (05:32)
[2021-01-25] MEDS: Polyethylene Glycol OPTH DROP 15 ML BOT EA EYE SCH ×2 (09:39→21:03)
[2021-01-25] MEDS: Fluticasone Propionate Nasal Spray 16 gm Bottle NASAL SCH (09:40)
[2021-01-25] MEDS: Albuterol Sulfate 2.5 mg/3 ml Neb NEB SCH ×2 (09:40→21:03)
[2021-01-25] MEDS: Mometasone Furoate 120 PUFF 220 MCG INH SCH ×4 (09:40→21:03)
[2021-01-25] MEDS: Spironolactone 25 MG TAB PO SCH (09:41)
[2021-01-25] MEDS: Clopidogrel Bisulfate 75 MG TAB PO SCH (09:41)
[2021-01-25] MEDS: Pregabalin 75 MG CAP PO SCH (09:41)
[2021-01-25] MEDS: Tamsulosin HCl 0.4 MG CAP PO SCH (09:41)
[2021-01-25] MEDS: THEOPHYLLINE 200 MG PO SCH ×2 (09:42→21:03)
[2021-01-25] MEDS: Montelukast Sodium 10 mg Tablet PO SCH (21:03)
[2021-01-25] MEDS: Atorvastatin Calcium 20 MG TAB PO SCH (21:03)
[2021-01-25] MEDS: cefTRIAXone\\ROCEPHIN 2 GM in Sodium Chloride 0.9% 100 ML IVPB SCH (21:05)
[2021-01-26] MEDS: Ipratropium Bromide 2.5 ml Neb NEB SCH ×3 (05:41→17:27)
[2021-01-26] MEDS: Levothyroxine Sodium 25 MCG TAB PO SCH (05:41)
[2021-01-26] MEDS: Spironolactone 25 MG TAB PO SCH (09:19)
[2021-01-26] MEDS: Pregabalin 75 MG CAP PO SCH (09:19)
[2021-01-26] MEDS: THEOPHYLLINE 200 MG PO SCH ×2 (09:19→20:55)
[2021-01-26] MEDS: Clopidogrel Bisulfate 75 MG TAB PO SCH (09:19)
[2021-01-26] MEDS: Albuterol Sulfate 2.5 mg/3 ml Neb NEB SCH ×2 (09:19→21:03)
[2021-01-26] MEDS: Tamsulosin HCl 0.4 MG CAP PO SCH (09:19)
[2021-01-26] MEDS: Polyethylene Glycol OPTH DROP 15 ML BOT EA EYE SCH ×2 (09:24→20:55)
[2021-01-26] MEDS: Fluticasone Propionate Nasal Spray 16 gm Bottle NASAL SCH (09:24)
[2021-01-26] MEDS: Mometasone Furoate 120 PUFF 220 MCG INH SCH ×4 (09:24→20:55)
[2021-01-26] MEDS: Lidocaine 5% Patch TD PRN (18:24)
[2021-01-26] MEDS: Atorvastatin Calcium 20 MG TAB PO SCH (20:54)
[2021-01-26] MEDS: Montelukast Sodium 10 mg Tablet PO SCH (20:54)
[2021-01-26] MEDS: cefTRIAXone\\ROCEPHIN 2 GM in Sodium Chloride 0.9% 100 ML IVPB SCH (21:04)
[2021-01-27] MEDS: Ipratropium Bromide 2.5 ml Neb NEB SCH ×5 (00:09→23:22)
[2021-01-27] MEDS: Levothyroxine Sodium 25 MCG TAB PO SCH (05:34)
[2021-01-27] MEDS: Pregabalin 75 MG CAP PO SCH (08:30)
[2021-01-27] MEDS: Tamsulosin HCl 0.4 MG CAP PO SCH (08:31)
[2021-01-27] MEDS: THEOPHYLLINE 200 MG PO SCH ×2 (08:32→21:07)
[2021-01-27] MEDS: Polyethylene Glycol OPTH DROP 15 ML BOT EA EYE SCH ×2 (08:32→21:05)
[2021-01-27] MEDS: Clopidogrel Bisulfate 75 MG TAB PO SCH (08:32)
[2021-01-27] MEDS: Spironolactone 25 MG TAB PO SCH (08:32)
[2021-01-27] MEDS: Fluticasone Propionate Nasal Spray 16 gm Bottle NASAL SCH (08:33)
[2021-01-27] MEDS: Mometasone Furoate 120 PUFF 220 MCG INH SCH ×4 (08:33→21:05)
[2021-01-27] MEDS: Albuterol Sulfate 2.5 mg/3 ml Neb NEB SCH ×2 (09:16→21:07)
[2021-01-27] MEDS: Montelukast Sodium 10 mg Tablet PO SCH (21:07)
[2021-01-27] MEDS: Atorvastatin Calcium 20 MG TAB PO SCH (21:07)
[2021-01-27] MEDS: cefTRIAXone\\ROCEPHIN 2 GM in Sodium Chloride 0.9% 100 ML IVPB SCH (21:11)
[2021-01-28] MEDS: Ipratropium Bromide 2.5 ml Neb NEB SCH ×3 (05:37→18:15)
[2021-01-28] MEDS: Levothyroxine Sodium 25 MCG TAB PO SCH (05:37)
[2021-01-28] MEDS: THEOPHYLLINE 200 MG PO SCH ×2 (08:44→21:21)
[2021-01-28] MEDS: Spironolactone 25 MG TAB PO SCH (08:44)
[2021-01-28] MEDS: Mometasone Furoate 120 PUFF 220 MCG INH SCH ×4 (08:45→21:20)
[2021-01-28] MEDS: Clopidogrel Bisulfate 75 MG TAB PO SCH (08:45)
[2021-01-28] MEDS: Tamsulosin HCl 0.4 MG CAP PO SCH (08:45)
[2021-01-28] MEDS: Pregabalin 75 MG CAP PO SCH (08:46)
[2021-01-28] MEDS: Polyethylene Glycol OPTH DROP 15 ML BOT EA EYE SCH ×2 (08:46→21:20)
[2021-01-28] MEDS: Albuterol Sulfate 2.5 mg/3 ml Neb NEB SCH ×2 (08:47→21:20)
[2021-01-28] MEDS: Fluticasone Propionate Nasal Spray 16 gm Bottle NASAL SCH (08:48)
[2021-01-28 15:27] LABS: #Basophils 0.1 thou/uL (0.0-0.2); #Eosinphils 0.2 thou/uL (0.0-0.7); #Lymphocytes 1.1 thou/uL (1.20-3.40); #Monocytes 0.9 thou/uL (0.11-0.59); #Neutrophils 8.6 thou/uL (1.40-6.50); %Basophils 1.3 % (0.0-1.0); %Eosinophils 2.1 % (0.0-10.0); %Lymphocytes 9.6 % (21.0-51.0); %Monocytes 8.3 % (0.0-10.0); %Neutrophils 78.7 % (42.0-75.0); Hemoglobin 13.1 g/dL (14.0-18.0); Mean Corpuscular HGB CONC 31.2 g/dL (32.0-36.0); Mean Corpuscular Volume 99.2 fL (78.0-98.0); Mean Platelet Volume 6.8 fL (7.4-10.4); Platelet Count 400 thou/uL (130-400); RBC Distribution Width 13.6 % (11.5-14.5); Red Blood Cell (RBC) Count 4.23 mill/uL (4.70-6.10); White Blood Cell (WBC) Count 10.9 thou/uL (4.8-10.8)
[2021-01-28 15:40] LABS: Anion Gap 17 mmol/L (10-20); BUN (Urea Nitrogen) 15 mg/dL (8.4-25.7); Calc. Creatinine Clearance 65 mL/min (70-130); Calcium 8.5 mg/dL (7.8-10.44); Carbon Dioxide 21 mmol/L (23-31); Chloride 94 mmol/L (98-107); Glucose 193 mg/dL (83-110); Potassium 3.7 mmol/L (3.5-5.1); Sodium 128 mmol/L (136-145)
[2021-01-28] MEDS: Acetaminophen 325 MG TAB PO PRN (15:40)
[2021-01-28] MEDS: Nystatin Powder 15 GM BOT TOP SCH (21:20)
[2021-01-28] MEDS: cefTRIAXone\\ROCEPHIN 2 GM in Sodium Chloride 0.9% 100 ML IVPB SCH (21:21)
[2021-01-28] MEDS: Atorvastatin Calcium 20 MG TAB PO SCH (21:21)
[2021-01-28] MEDS: Montelukast Sodium 10 mg Tablet PO SCH (21:21)
[2021-01-29] MEDS: Ipratropium Bromide 2.5 ml Neb NEB SCH ×4 (00:31→18:02)
[2021-01-29] MEDS: Levothyroxine Sodium 25 MCG TAB PO SCH (05:44)
[2021-01-29] MEDS: Fluticasone Propionate Nasal Spray 16 gm Bottle NASAL SCH (10:33)
[2021-01-29] MEDS: Mometasone Furoate 120 PUFF 220 MCG INH SCH ×4 (10:34→21:26)
[2021-01-29] MEDS: Polyethylene Glycol OPTH DROP 15 ML BOT EA EYE SCH ×2 (10:34→21:26)
[2021-01-29] MEDS: Albuterol Sulfate 2.5 mg/3 ml Neb NEB SCH ×2 (10:34→21:25)
[2021-01-29] MEDS: Clopidogrel Bisulfate 75 MG TAB PO SCH (10:35)
[2021-01-29] MEDS: Spironolactone 25 MG TAB PO SCH (10:35)
[2021-01-29] MEDS: Tamsulosin HCl 0.4 MG CAP PO SCH (10:35)
[2021-01-29] MEDS: Pregabalin 75 MG CAP PO SCH (10:35)
[2021-01-29] MEDS: Nystatin Powder 15 GM BOT TOP SCH ×2 (10:36→21:26)
[2021-01-29] MEDS: THEOPHYLLINE 200 MG PO SCH ×2 (10:47→21:27)
[2021-01-29] MEDS: cefTRIAXone\\ROCEPHIN 2 GM in Sodium Chloride 0.9% 100 ML IVPB SCH (21:23)
[2021-01-29] MEDS: Montelukast Sodium 10 mg Tablet PO SCH (21:26)
[2021-01-29] MEDS: Atorvastatin Calcium 20 MG TAB PO SCH (21:26)
[2021-01-29] MEDS: Acetaminophen 325 MG TAB PO PRN (22:01)
[2021-01-30] MEDS: Ipratropium Bromide 2.5 ml Neb NEB SCH ×4 (00:23→17:46)
[2021-01-30] MEDS: Levothyroxine Sodium 25 MCG TAB PO SCH (05:10)
[2021-01-30] MEDS: Fluticasone Propionate Nasal Spray 16 gm Bottle NASAL SCH (08:41)
[2021-01-30] MEDS: Pregabalin 75 MG CAP PO SCH (08:41)
[2021-01-30] MEDS: Spironolactone 25 MG TAB PO SCH (08:41)
[2021-01-30] MEDS: Tamsulosin HCl 0.4 MG CAP PO SCH (08:41)
[2021-01-30] MEDS: Mometasone Furoate 120 PUFF 220 MCG INH SCH ×4 (08:41→20:59)
[2021-01-30] MEDS: Polyethylene Glycol OPTH DROP 15 ML BOT EA EYE SCH ×2 (08:42→21:04)
[2021-01-30] MEDS: Albuterol Sulfate 2.5 mg/3 ml Neb NEB SCH ×2 (08:42→21:06)
[2021-01-30] MEDS: Clopidogrel Bisulfate 75 MG TAB PO SCH (08:42)
[2021-01-30] MEDS: Nystatin Powder 15 GM BOT TOP SCH ×2 (08:42→21:07)
[2021-01-30] MEDS: THEOPHYLLINE 200 MG PO SCH ×2 (08:43→21:03)
[2021-01-30] MEDS: Acetaminophen 325 MG TAB PO PRN (14:03)
[2021-01-30] MEDS: Montelukast Sodium 10 mg Tablet PO SCH (21:03)
[2021-01-30] MEDS: Atorvastatin Calcium 20 MG TAB PO SCH (21:06)
[2021-01-30] MEDS: cefTRIAXone\\ROCEPHIN 2 GM in Sodium Chloride 0.9% 100 ML IVPB SCH (21:16)
[2021-01-31] MEDS: Ipratropium Bromide 2.5 ml Neb NEB SCH ×5 (05:06→23:34)
[2021-01-31] MEDS: Levothyroxine Sodium 25 MCG TAB PO SCH (05:06)
[2021-01-31 05:19] LABS: #Basophils 0.1 thou/uL (0.0-0.2); #Eosinphils 0.3 thou/uL (0.0-0.7); #Lymphocytes 0.7 thou/uL (1.20-3.40); #Monocytes 0.7 thou/uL (0.11-0.59); #Neutrophils 7.2 thou/uL (1.40-6.50); %Basophils 0.7 % (0.0-1.0); %Lymphocytes 7.8 % (21.0-51.0); %Monocytes 7.6 % (0.0-10.0); %Neutrophils 80.9 % (42.0-75.0); Hemoglobin 13.5 g/dL (14.0-18.0); Manual Diff?? NO; Mean Corpuscular HGB CONC 31.3 g/dL (32.0-36.0); Mean Platelet Volume 6.7 fL (7.4-10.4); Platelet Count 334 thou/uL (130-400); RBC Distribution Width 12.9 % (11.5-14.5); Red Blood Cell (RBC) Count 4.36 mill/uL (4.70-6.10)
[2021-01-31 05:36] LABS: Anion Gap 16 mmol/L (10-20); BUN (Urea Nitrogen) 12 mg/dL (8.4-25.7); Calc. Creatinine Clearance 63 mL/min (70-130); Calcium 8.4 mg/dL (7.8-10.44); Carbon Dioxide 23 mmol/L (23-31); Chloride 98 mmol/L (98-107); Glucose 115 mg/dL (83-110); Potassium 3.4 mmol/L (3.5-5.1); Sodium 134 mmol/L (136-145); Uric Acid 5.4 mg/dL (3.5-7.2)
[2021-01-31] MEDS: Fluticasone Propionate Nasal Spray 16 gm Bottle NASAL SCH (08:28)
[2021-01-31] MEDS: Mometasone Furoate 120 PUFF 220 MCG INH SCH ×4 (08:28→20:57)
[2021-01-31] MEDS: Albuterol Sulfate 2.5 mg/3 ml Neb NEB SCH ×2 (08:29→20:58)
[2021-01-31] MEDS: Clopidogrel Bisulfate 75 MG TAB PO SCH (08:29)
[2021-01-31] MEDS: Spironolactone 25 MG TAB PO SCH (08:29)
[2021-01-31] MEDS: Pregabalin 75 MG CAP PO SCH (08:29)
[2021-01-31] MEDS: Nystatin Powder 15 GM BOT TOP SCH ×2 (08:30→22:09)
[2021-01-31] MEDS: Tamsulosin HCl 0.4 MG CAP PO SCH (08:30)
[2021-01-31] MEDS: THEOPHYLLINE 200 MG PO SCH ×2 (08:30→20:57)
[2021-01-31] MEDS: Polyethylene Glycol OPTH DROP 15 ML BOT EA EYE SCH ×2 (08:34→20:58)
[2021-01-31] MEDS ORDERED: Acetaminophen 325 MG TAB PO PRN (17:59)
[2021-01-31] MEDS: Atorvastatin Calcium 20 MG TAB PO SCH (20:57)
[2021-01-31] MEDS: cefTRIAXone\\ROCEPHIN 2 GM in Sodium Chloride 0.9% 100 ML IVPB SCH (20:58)
[2021-01-31] MEDS: Montelukast Sodium 10 mg Tablet PO SCH (22:09)
[2021-02-01 05:24] LABS: #Basophils 0.1 thou/uL (0.0-0.2); #Eosinphils 0.4 thou/uL (0.0-0.7); #Monocytes 0.8 thou/uL (0.11-0.59); #Neutrophils 7.6 thou/uL (1.40-6.50); %Basophils 0.7 % (0.0-1.0); %Eosinophils 4.1 % (0.0-10.0); %Lymphocytes 9.8 % (21.0-51.0); %Neutrophils 77.4 % (42.0-75.0); Hemoglobin 12.2 g/dL (14.0-18.0); Mean Corpuscular HGB CONC 31.6 g/dL (32.0-36.0); Mean Corpuscular Hemoglobin 30.9 pg (27.0-31.0); Mean Corpuscular Volume 97.9 fL (78.0-98.0); Mean Platelet Volume 6.9 fL (7.4-10.4); Platelet Count 350 thou/uL (130-400); RBC Distribution Width 13.1 % (11.5-14.5); Red Blood Cell (RBC) Count 3.95 mill/uL (4.70-6.10); White Blood Cell (WBC) Count 9.8 thou/uL (4.8-10.8)
[2021-02-01] MEDS: Ipratropium Bromide 2.5 ml Neb NEB SCH ×3 (05:28→17:02)
[2021-02-01] MEDS: Levothyroxine Sodium 25 MCG TAB PO SCH (05:29)
[2021-02-01 05:30] LABS: Anion Gap 14 mmol/L (10-20); BUN (Urea Nitrogen) 9 mg/dL (8.4-25.7); Calc. Creatinine Clearance 66 mL/min (70-130); Calcium 8.1 mg/dL (7.8-10.44); Carbon Dioxide 23 mmol/L (23-31); Chloride 97 mmol/L (98-107); Glucose 103 mg/dL (83-110); Potassium 3.3 mmol/L (3.5-5.1); Sodium 131 mmol/L (136-145)
[2021-02-01] MEDS: Nystatin Powder 15 GM BOT TOP SCH ×2 (08:49→20:52)
[2021-02-01] MEDS: THEOPHYLLINE 200 MG PO SCH ×2 (08:50→20:51)
[2021-02-01] MEDS: Spironolactone 25 MG TAB PO SCH (08:50)
[2021-02-01] MEDS: Clopidogrel Bisulfate 75 MG TAB PO SCH (08:50)
[2021-02-01] MEDS: Pregabalin 75 MG CAP PO SCH (08:51)
[2021-02-01] MEDS: Mometasone Furoate 120 PUFF 220 MCG INH SCH ×4 (08:51→20:50)
[2021-02-01] MEDS: Fluticasone Propionate Nasal Spray 16 gm Bottle NASAL SCH (08:51)
[2021-02-01] MEDS: Polyethylene Glycol OPTH DROP 15 ML BOT EA EYE SCH ×2 (08:52→20:51)
[2021-02-01] MEDS: Tamsulosin HCl 0.4 MG CAP PO SCH (08:52)
[2021-02-01] MEDS: Albuterol Sulfate 2.5 mg/3 ml Neb NEB SCH ×2 (08:52→20:51)
[2021-02-01] MEDS ORDERED: Sodium Chloride 0.9% 20 ML ONE (20:11)
[2021-02-01] MEDS: cefTRIAXone\\ROCEPHIN 2 GM in Sodium Chloride 0.9% 100 ML IVPB SCH (20:50)
[2021-02-01] MEDS: Montelukast Sodium 10 mg Tablet PO SCH (20:51)
[2021-02-01] MEDS: Atorvastatin Calcium 20 MG TAB PO SCH (20:51)
[2021-02-02] MEDS: Ipratropium Bromide 2.5 ml Neb NEB SCH ×4 (00:06→17:58)
[2021-02-02] MEDS: Levothyroxine Sodium 25 MCG TAB PO SCH (05:18)
[2021-02-02 05:30] LABS: Anion Gap 17 mmol/L (10-20); BUN (Urea Nitrogen) 10 mg/dL (8.4-25.7); Calc. Creatinine Clearance 64 mL/min (70-130); Calcium 8.2 mg/dL (7.8-10.44); Carbon Dioxide 22 mmol/L (23-31); Chloride 97 mmol/L (98-107); Glucose 111 mg/dL (83-110); Potassium 3.3 mmol/L (3.5-5.1); Sodium 133 mmol/L (136-145)
[2021-02-02 06:09] LABS: #Basophils 0.1 thou/uL (0.0-0.2); #Eosinphils 0.4 thou/uL (0.0-0.7); #Lymphocytes 0.7 thou/uL (1.20-3.40); #Monocytes 0.7 thou/uL (0.11-0.59); #Neutrophils 9.4 thou/uL (1.40-6.50); %Basophils 0.7 % (0.0-1.0); %Eosinophils 3.4 % (0.0-10.0); %Lymphocytes 6.1 % (21.0-51.0); %Monocytes 6.1 % (0.0-10.0); %Neutrophils 83.8 % (42.0-75.0); Hemoglobin 13.1 g/dL (14.0-18.0); Mean Corpuscular HGB CONC 32.7 g/dL (32.0-36.0); Mean Corpuscular Hemoglobin 31.1 pg (27.0-31.0); Mean Corpuscular Volume 95.2 fL (78.0-98.0); Mean Platelet Volume 7.2 fL (7.4-10.4); Platelet Count 363 thou/uL (130-400); RBC Distribution Width 12.5 % (11.5-14.5); Red Blood Cell (RBC) Count 4.21 mill/uL (4.70-6.10); White Blood Cell (WBC) Count 11.2 thou/uL (4.8-10.8)
[2021-02-02] MEDS: Pregabalin 75 MG CAP PO SCH (08:20)
[2021-02-02] MEDS: Nystatin Powder 15 GM BOT TOP SCH ×2 (08:21→20:55)
[2021-02-02] MEDS: THEOPHYLLINE 200 MG PO SCH ×2 (08:21→20:53)
[2021-02-02] MEDS: Spironolactone 25 MG TAB PO SCH (08:21)
[2021-02-02] MEDS: Tamsulosin HCl 0.4 MG CAP PO SCH (08:21)
[2021-02-02] MEDS: Mometasone Furoate 120 PUFF 220 MCG INH SCH ×4 (08:22→20:54)
[2021-02-02] MEDS: Albuterol Sulfate 2.5 mg/3 ml Neb NEB SCH ×2 (08:22→20:52)
[2021-02-02] MEDS: Polyethylene Glycol OPTH DROP 15 ML BOT EA EYE SCH ×2 (08:22→20:55)
[2021-02-02] MEDS: Fluticasone Propionate Nasal Spray 16 gm Bottle NASAL SCH (08:22)
[2021-02-02] MEDS: Clopidogrel Bisulfate 75 MG TAB PO SCH (08:23)
[2021-02-02] MEDS: Atorvastatin Calcium 20 MG TAB PO SCH (20:53)
[2021-02-02] MEDS: Montelukast Sodium 10 mg Tablet PO SCH (20:53)
[2021-02-02] MEDS: cefTRIAXone\\ROCEPHIN 2 GM in Sodium Chloride 0.9% 100 ML IVPB SCH (20:54)
[2021-02-03] MEDS: Ipratropium Bromide 2.5 ml Neb NEB SCH ×4 (00:34→18:07)
[2021-02-03] MEDS ORDERED: Potassium Chloride 20 MEQ TAB PO SCH (00:45)
[2021-02-03] MEDS: Levothyroxine Sodium 25 MCG TAB PO SCH (05:17)
[2021-02-03 05:20] LABS: #Basophils 0.1 thou/uL (0.0-0.2); #Eosinphils 0.4 thou/uL (0.0-0.7); #Lymphocytes 0.8 thou/uL (1.20-3.40); #Monocytes 0.8 thou/uL (0.11-0.59); #Neutrophils 10.2 thou/uL (1.40-6.50); %Basophils 0.5 % (0.0-1.0); %Eosinophils 3.5 % (0.0-10.0); %Lymphocytes 6.2 % (21.0-51.0); %Monocytes 6.3 % (0.0-10.0); %Neutrophils 83.5 % (42.0-75.0); Hemoglobin 12.9 g/dL (14.0-18.0); Mean Corpuscular HGB CONC 32.4 g/dL (32.0-36.0); Mean Corpuscular Hemoglobin 30.8 pg (27.0-31.0); Mean Corpuscular Volume 95.1 fL (78.0-98.0); Platelet Count 317 thou/uL (130-400); RBC Distribution Width 12.9 % (11.5-14.5); Red Blood Cell (RBC) Count 4.18 mill/uL (4.70-6.10); White Blood Cell (WBC) Count 12.2 thou/uL (4.8-10.8)
[2021-02-03 05:34] LABS: Anion Gap 16 mmol/L (10-20); BUN (Urea Nitrogen) 9 mg/dL (8.4-25.7); Calc. Creatinine Clearance 65 mL/min (70-130); Calcium 8.2 mg/dL (7.8-10.44); Carbon Dioxide 22 mmol/L (23-31); Chloride 98 mmol/L (98-107); Glucose 114 mg/dL (83-110); Magnesium 2.2 mg/dL (1.6-2.6); Potassium 3.6 mmol/L (3.5-5.1); Sodium 132 mmol/L (136-145)
[2021-02-03] MEDS: Albuterol Sulfate 2.5 mg/3 ml Neb NEB SCH ×2 (08:03→21:19)
[2021-02-03] MEDS: Spironolactone 25 MG TAB PO SCH (08:03)
[2021-02-03] MEDS: Clopidogrel Bisulfate 75 MG TAB PO SCH (08:04)
[2021-02-03] MEDS: Mometasone Furoate 120 PUFF 220 MCG INH SCH ×4 (08:04→21:20)
[2021-02-03] MEDS: Fluticasone Propionate Nasal Spray 16 gm Bottle NASAL SCH (08:04)
[2021-02-03] MEDS: Nystatin Powder 15 GM BOT TOP SCH ×2 (08:05→21:20)
[2021-02-03] MEDS: Polyethylene Glycol OPTH DROP 15 ML BOT EA EYE SCH ×2 (08:05→21:25)
[2021-02-03] MEDS: Pregabalin 75 MG CAP PO SCH (08:05)
[2021-02-03] MEDS: THEOPHYLLINE 200 MG PO SCH ×2 (08:06→21:17)
[2021-02-03] MEDS: Tamsulosin HCl 0.4 MG CAP PO SCH (08:06)
[2021-02-03] MEDS: Atorvastatin Calcium 20 MG TAB PO SCH (21:17)
[2021-02-03] MEDS: Montelukast Sodium 10 mg Tablet PO SCH (21:17)
[2021-02-03] MEDS: cefTRIAXone\\ROCEPHIN 2 GM in Sodium Chloride 0.9% 100 ML IVPB SCH (21:18)
[2021-02-04] MEDS: Ipratropium Bromide 2.5 ml Neb NEB SCH ×5 (00:20→23:12)
[2021-02-04 05:21] LABS: #Basophils 0.1 thou/uL (0.0-0.2); #Eosinphils 0.7 thou/uL (0.0-0.7); #Monocytes 0.8 thou/uL (0.11-0.59); #Neutrophils 9.2 thou/uL (1.40-6.50); %Basophils 0.6 % (0.0-1.0); %Eosinophils 5.7 % (0.0-10.0); %Lymphocytes 8.6 % (21.0-51.0); %Monocytes 6.8 % (0.0-10.0); %Neutrophils 78.3 % (42.0-75.0); Hemoglobin 13.3 g/dL (14.0-18.0); Mean Corpuscular HGB CONC 31.9 g/dL (32.0-36.0); Mean Corpuscular Hemoglobin 30.8 pg (27.0-31.0); Mean Corpuscular Volume 96.5 fL (78.0-98.0); Platelet Count 334 thou/uL (130-400); RBC Distribution Width 12.9 % (11.5-14.5); Red Blood Cell (RBC) Count 4.32 mill/uL (4.70-6.10); White Blood Cell (WBC) Count 11.7 thou/uL (4.8-10.8)
[2021-02-04 05:31] LABS: Anion Gap 15 mmol/L (10-20); BUN (Urea Nitrogen) 10 mg/dL (8.4-25.7); Calc. Creatinine Clearance 65 mL/min (70-130); Calcium 8.2 mg/dL (7.8-10.44); Carbon Dioxide 23 mmol/L (23-31); Chloride 99 mmol/L (98-107); Glucose 106 mg/dL (83-110); Potassium 3.3 mmol/L (3.5-5.1); Sodium 134 mmol/L (136-145)
[2021-02-04] MEDS: Levothyroxine Sodium 25 MCG TAB PO SCH (06:14)
[2021-02-04] MEDS: Spironolactone 25 MG TAB PO SCH (08:12)
[2021-02-04] MEDS: Albuterol Sulfate 2.5 mg/3 ml Neb NEB SCH ×2 (08:12→21:49)
[2021-02-04] MEDS: Mometasone Furoate 120 PUFF 220 MCG INH SCH ×4 (08:13→21:45)
[2021-02-04] MEDS: Fluticasone Propionate Nasal Spray 16 gm Bottle NASAL SCH (08:13)
[2021-02-04] MEDS: Clopidogrel Bisulfate 75 MG TAB PO SCH (08:13)
[2021-02-04] MEDS: Pregabalin 75 MG CAP PO SCH (08:15)
[2021-02-04] MEDS: Polyethylene Glycol OPTH DROP 15 ML BOT EA EYE SCH ×2 (08:15→21:46)
[2021-02-04] MEDS: Nystatin Powder 15 GM BOT TOP SCH ×2 (08:15→21:50)
[2021-02-04] MEDS: THEOPHYLLINE 200 MG PO SCH ×2 (08:16→21:46)
[2021-02-04] MEDS: Tamsulosin HCl 0.4 MG CAP PO SCH (08:16)
[2021-02-04 17:59] VITALS: BMI 20.7
[2021-02-04] MEDS: Atorvastatin Calcium 20 MG TAB PO SCH (21:46)
[2021-02-04] MEDS: Montelukast Sodium 10 mg Tablet PO SCH (21:46)
[2021-02-04] MEDS: cefTRIAXone\\ROCEPHIN 2 GM in Sodium Chloride 0.9% 100 ML IVPB SCH (21:47)
[2021-02-05 05:16] LABS: #Basophils 0.1 thou/uL (0.0-0.2); #Eosinphils 0.7 thou/uL (0.0-0.7); #Monocytes 0.7 thou/uL (0.11-0.59); #Neutrophils 7.8 thou/uL (1.40-6.50); %Basophils 0.9 % (0.0-1.0); %Eosinophils 6.8 % (0.0-10.0); %Lymphocytes 9.6 % (21.0-51.0); %Monocytes 6.9 % (0.0-10.0); %Neutrophils 75.8 % (42.0-75.0); Hemoglobin 12.1 g/dL (14.0-18.0); Mean Corpuscular HGB CONC 32.2 g/dL (32.0-36.0); Mean Corpuscular Hemoglobin 30.8 pg (27.0-31.0); Mean Corpuscular Volume 95.6 fL (78.0-98.0); Mean Platelet Volume 7.1 fL (7.4-10.4); Platelet Count 323 thou/uL (130-400); RBC Distribution Width 13.1 % (11.5-14.5); Red Blood Cell (RBC) Count 3.92 mill/uL (4.70-6.10); White Blood Cell (WBC) Count 10.3 thou/uL (4.8-10.8)
[2021-02-05 05:31] LABS: Anion Gap 15 mmol/L (10-20); BUN (Urea Nitrogen) 11 mg/dL (8.4-25.7); Calc. Creatinine Clearance 66 mL/min (70-130); Carbon Dioxide 23 mmol/L (23-31); Chloride 97 mmol/L (98-107); Glucose 101 mg/dL (83-110); Potassium 3.2 mmol/L (3.5-5.1); Sodium 132 mmol/L (136-145)
[2021-02-05] MEDS: Levothyroxine Sodium 25 MCG TAB PO SCH (06:06)
[2021-02-05] MEDS: Ipratropium Bromide 2.5 ml Neb NEB SCH ×4 (06:06→23:53)
[2021-02-05] MEDS: Fluticasone Propionate Nasal Spray 16 gm Bottle NASAL SCH (08:13)
[2021-02-05] MEDS: Mometasone Furoate 120 PUFF 220 MCG INH SCH ×4 (08:14→21:23)
[2021-02-05] MEDS: Polyethylene Glycol OPTH DROP 15 ML BOT EA EYE SCH ×2 (08:14→21:24)
[2021-02-05] MEDS: Albuterol Sulfate 2.5 mg/3 ml Neb NEB SCH ×2 (08:15→21:26)
[2021-02-05] MEDS: Pregabalin 75 MG CAP PO SCH (08:16)
[2021-02-05] MEDS: Spironolactone 25 MG TAB PO SCH (08:17)
[2021-02-05] MEDS: THEOPHYLLINE 200 MG PO SCH ×2 (08:17→21:21)
[2021-02-05] MEDS: Tamsulosin HCl 0.4 MG CAP PO SCH (08:18)
[2021-02-05] MEDS: Clopidogrel Bisulfate 75 MG TAB PO SCH (08:18)
[2021-02-05] MEDS: Montelukast Sodium 10 mg Tablet PO SCH (21:21)
[2021-02-05] MEDS: Atorvastatin Calcium 20 MG TAB PO SCH (21:21)
[2021-02-05] MEDS: cefTRIAXone\\ROCEPHIN 2 GM in Sodium Chloride 0.9% 100 ML IVPB SCH (21:24)
[2021-02-06 05:37] LABS: #Basophils 0.1 thou/uL (0.0-0.2); #Eosinphils 0.7 thou/uL (0.0-0.7); #Lymphocytes 0.8 thou/uL (1.20-3.40); #Monocytes 0.7 thou/uL (0.11-0.59); #Neutrophils 8.4 thou/uL (1.40-6.50); %Basophils 0.8 % (0.0-1.0); %Eosinophils 6.3 % (0.0-10.0); %Lymphocytes 7.6 % (21.0-51.0); %Monocytes 6.3 % (0.0-10.0); %Neutrophils 78.9 % (42.0-75.0); Hemoglobin 13.2 g/dL (14.0-18.0); Mean Corpuscular HGB CONC 32.5 g/dL (32.0-36.0); Mean Corpuscular Volume 95.5 fL (78.0-98.0); Mean Platelet Volume 6.9 fL (7.4-10.4); Platelet Count 373 thou/uL (130-400); Red Blood Cell (RBC) Count 4.27 mill/uL (4.70-6.10); White Blood Cell (WBC) Count 10.6 thou/uL (4.8-10.8)
[2021-02-06 05:46] LABS: Anion Gap 15 mmol/L (10-20); BUN (Urea Nitrogen) 9 mg/dL (8.4-25.7); Calc. Creatinine Clearance 62 mL/min (70-130); Calcium 8.5 mg/dL (7.8-10.44); Carbon Dioxide 23 mmol/L (23-31); Chloride 98 mmol/L (98-107); Glucose 102 mg/dL (83-110); Potassium 3.2 mmol/L (3.5-5.1); Sodium 133 mmol/L (136-145)
[2021-02-06] MEDS: Ipratropium Bromide 2.5 ml Neb NEB SCH ×2 (05:47→11:13)
[2021-02-06] MEDS: Levothyroxine Sodium 25 MCG TAB PO SCH (05:47)
[2021-02-06] MEDS: THEOPHYLLINE 200 MG PO SCH (08:13)
[2021-02-06] MEDS: Pregabalin 75 MG CAP PO SCH (08:13)
[2021-02-06] MEDS: Spironolactone 25 MG TAB PO SCH (08:15)
[2021-02-06] MEDS: Albuterol Sulfate 2.5 mg/3 ml Neb NEB SCH (08:16)
[2021-02-06] MEDS: Tamsulosin HCl 0.4 MG CAP PO SCH (08:16)
[2021-02-06] MEDS: Clopidogrel Bisulfate 75 MG TAB PO SCH (08:16)
[2021-02-06] MEDS: Mometasone Furoate 120 PUFF 220 MCG INH SCH ×2 (08:20→12:08)
[2021-02-06] MEDS: Polyethylene Glycol OPTH DROP 15 ML BOT EA EYE SCH (08:21)
[2021-02-06] MEDS: Fluticasone Propionate Nasal Spray 16 gm Bottle NASAL SCH (08:22)
[2021-02-06] MEDS ORDERED: cefTRIAXone\\ROCEPHIN 2 GM in Sodium Chloride 0.9% 100 ML IVPB SCH (12:00)
[2021-02-06] MEDS ORDERED: Sodium Chloride 0.9% 10 ML ONE (12:03)
[2021-02-06 13:48] VITALS: BP 100/60; TEMP 98.2
== END 2021-02-06 13:40 | disposition home health service (06) | DRG 92 ==
LOC: NAV ACUTE 16:21
PROVIDERS: ADMIT Family Medicine; ATTEND Family Medicine
DX: G72.81 Critical illness myopathy (principal); R78.81 Bacteremia; J44.9 Chronic obstructive pulmonary disease, unspecified; I25.10 Atherosclerotic heart disease of native coronary artery without angina pectoris; I10 Essential (primary) hypertension; K05.10 Chronic gingivitis, plaque induced; S16.1XXA Strain of muscle, fascia and tendon at neck level, initial encounter; F41.9 Anxiety disorder, unspecified; B95.1 Streptococcus, group B, as the cause of diseases classified elsewhere; R53.81 Other malaise; W19.XXXA Unspecified fall, initial encounter; Z20.822 Contact with and (suspected) exposure to COVID-19; R50.9 Fever, unspecified; Z88.8 Allergy status to other drugs, medicaments and biological substances; Z95.1 Presence of aortocoronary bypass graft; Z95.2 Presence of prosthetic heart valve; Z85.46 Personal history of malignant neoplasm of prostate
CPT/HCPCS: 36415; 71046; 80048; 83735; 84550; 85025; 87040; 87077; 87086; 87186; 94640; 94664; J0696; J3490; J7611; J7620

== ENCOUNTER 2022-02-26 15:40 | Outpatient (CLI) | payer MEDICARE, OTHER ==
[2022-02-26 15:48] LABS: #Basophils 0.2 thou/uL (0.0-0.2); #Eosinphils 0.2 thou/uL (0.0-0.7); #Lymphocytes 1.5 thou/uL (1.20-3.40); #Monocytes 0.9 thou/uL (0.11-0.59); #Neutrophils 7.4 thou/uL (1.40-6.50); %Basophils 1.5 % (0.0-1.0); %Eosinophils 2.4 % (0.0-10.0); %Lymphocytes 14.6 % (21.0-51.0); %Monocytes 8.8 % (0.0-10.0); %Neutrophils 72.7 % (42.0-75.0); Hemoglobin 13.2 g/dL (14.0-18.0); Mean Corpuscular HGB CONC 31.3 g/dL (32.0-36.0); Mean Corpuscular Hemoglobin 32.7 pg (27.0-31.0); Mean Platelet Volume 7.8 fL (7.4-10.4); Platelet Count 407 thou/uL (130-400); RBC Distribution Width 13.6 % (11.5-14.5); Red Blood Cell (RBC) Count 4.05 mill/uL (4.70-6.10); White Blood Cell (WBC) Count 10.1 thou/uL (4.8-10.8)
[2022-02-26 15:59] LABS: Anion Gap 18 mmol/L (10-20); BUN (Urea Nitrogen) 10 mg/dL (8.4-25.7); Calc. Creatinine Clearance 0 mL/min (70-130); Calcium 9.8 mg/dL (7.8-10.44); Carbon Dioxide 25 mmol/L (23-31); Chloride 100 mmol/L (98-107); Estimated GFR 86; Glucose 76 mg/dL (83-110); Potassium 4.6 mmol/L (3.5-5.1); Sodium 138 mmol/L (136-145)
[2022-02-26 16:16] LABS: CRP (Inflammatory) 0.53 mg/dL (= or < 0.5)
== END 2022-02-26 15:41 | disposition home or self-care (01) ==
LOC: NAV LABSP 15:40
PROVIDERS: ATTEND Family Medicine
DX: A41.9 Sepsis, unspecified organism (principal); I38 Endocarditis, valve unspecified
CPT/HCPCS: 80048; 85025; 86140

== ENCOUNTER 2022-03-05 13:57 | Outpatient (CLI) | payer MEDICARE, OTHER ==
[2022-03-05 15:33] LABS: #Basophils 0.1 thou/uL (0.0-0.2); #Eosinphils 0.4 thou/uL (0.0-0.7); #Lymphocytes 1.2 thou/uL (1.20-3.40); #Monocytes 0.6 thou/uL (0.11-0.59); #Neutrophils 5.5 thou/uL (1.40-6.50); %Basophils 1.7 % (0.0-1.0); %Eosinophils 4.6 % (0.0-10.0); %Lymphocytes 15.1 % (21.0-51.0); %Monocytes 7.7 % (0.0-10.0); %Neutrophils 70.9 % (42.0-75.0); Hemoglobin 13.2 g/dL (14.0-18.0); Mean Corpuscular HGB CONC 31.1 g/dL (32.0-36.0); Mean Corpuscular Hemoglobin 33.1 pg (27.0-31.0); Mean Platelet Volume 8.1 fL (7.4-10.4); Platelet Count 264 thou/uL (130-400); RBC Distribution Width 14.7 % (11.5-14.5); Red Blood Cell (RBC) Count 3.98 mill/uL (4.70-6.10); White Blood Cell (WBC) Count 7.7 thou/uL (4.8-10.8)
[2022-03-05 15:34] LABS: Anion Gap 17 mmol/L (10-20); BUN (Urea Nitrogen) 11 mg/dL (8.4-25.7); CRP (Inflammatory) Less than 0.50 mg/dL (= or < 0.5); Calc. Creatinine Clearance 0 mL/min (70-130); Calcium 9.4 mg/dL (7.8-10.44); Carbon Dioxide 24 mmol/L (23-31); Chloride 103 mmol/L (98-107); Estimated GFR 71; Glucose 163 mg/dL (83-110); Potassium 4.2 mmol/L (3.5-5.1); Sodium 140 mmol/L (136-145)
[2022-03-05 16:18] LABS: Follow-up Chemistry Comp? YES; Follow-up Result - Chemistry REPORT FAXED
== END 2022-03-05 13:58 | disposition home or self-care (01) ==
LOC: NAV LABSP 13:57
PROVIDERS: ATTEND Internal Medicine Infectious Disease
DX: A41.9 Sepsis, unspecified organism (principal)
CPT/HCPCS: 80048; 85025; 86140

== ENCOUNTER 2022-03-13 12:19 | Outpatient (CLI) | payer MEDICARE, OTHER ==
[2022-03-13 13:03] LABS: Anion Gap 19 mmol/L (10-20); BUN (Urea Nitrogen) 11 mg/dL (8.4-25.7); CRP (Inflammatory) Less than 0.50 mg/dL (= or < 0.5); Calc. Creatinine Clearance 0 mL/min (70-130); Calcium 8.9 mg/dL (7.8-10.44); Carbon Dioxide 21 mmol/L (23-31); Chloride 104 mmol/L (98-107); Estimated GFR 86; Glucose 79 mg/dL (83-110); Potassium 3.8 mmol/L (3.5-5.1); Sodium 140 mmol/L (136-145)
[2022-03-13 13:16] LABS: #Basophils 0.1 thou/uL (0.0-0.2); #Eosinphils 0.4 thou/uL (0.0-0.7); #Lymphocytes 1.5 thou/uL (1.20-3.40); #Monocytes 0.7 thou/uL (0.11-0.59); #Neutrophils 4.8 thou/uL (1.40-6.50); %Basophils 1.5 % (0.0-1.0); %Lymphocytes 19.6 % (21.0-51.0); %Neutrophils 63.9 % (42.0-75.0); Mean Corpuscular HGB CONC 31.1 g/dL (32.0-36.0); Mean Corpuscular Hemoglobin 32.9 pg (27.0-31.0); Mean Platelet Volume 8.9 fL (7.4-10.4); Platelet Count 200 thou/uL (130-400); RBC Distribution Width 15.5 % (11.5-14.5); Red Blood Cell (RBC) Count 3.96 mill/uL (4.70-6.10); White Blood Cell (WBC) Count 7.5 thou/uL (4.8-10.8)
== END 2022-03-13 12:20 | disposition home or self-care (01) ==
LOC: NAV LABSP 12:19
PROVIDERS: ATTEND Internal Medicine Infectious Disease
DX: A41.9 Sepsis, unspecified organism (principal); I38 Endocarditis, valve unspecified
CPT/HCPCS: 36415; 80048; 85025; 86140

== ENCOUNTER 2022-03-26 12:51 | Outpatient (CLI) | payer MEDICARE, OTHER ==
[2022-03-26 13:54] LABS: #Basophils 0.1 thou/uL (0.0-0.2); #Eosinphils 0.5 thou/uL (0.0-0.7); #Lymphocytes 1.8 thou/uL (1.20-3.40); #Monocytes 0.7 thou/uL (0.11-0.59); #Neutrophils 3.8 thou/uL (1.40-6.50); %Basophils 1.9 % (0.0-1.0); %Eosinophils 6.9 % (0.0-10.0); %Lymphocytes 25.7 % (21.0-51.0); %Monocytes 10.8 % (0.0-10.0); %Neutrophils 54.7 % (42.0-75.0); Hemoglobin 12.9 g/dL (14.0-18.0); Mean Corpuscular Hemoglobin 33.2 pg (27.0-31.0); Mean Platelet Volume 8.8 fL (7.4-10.4); Platelet Count 247 thou/uL (130-400); RBC Distribution Width 16.4 % (11.5-14.5); Red Blood Cell (RBC) Count 3.89 mill/uL (4.70-6.10); White Blood Cell (WBC) Count 6.9 thou/uL (4.8-10.8)
[2022-03-26 13:59] LABS: Anion Gap 20 mmol/L (10-20); BUN (Urea Nitrogen) 10 mg/dL (8.4-25.7); CRP (Inflammatory) Less than 0.50 mg/dL (= or < 0.5); Calc. Creatinine Clearance 0 mL/min (70-130); Calcium 9.4 mg/dL (7.8-10.44); Carbon Dioxide 23 mmol/L (23-31); Chloride 105 mmol/L (98-107); Estimated GFR 86; Glucose 113 mg/dL (83-110); Potassium 3.9 mmol/L (3.5-5.1); Sodium 144 mmol/L (136-145)
[2022-03-26 14:13] LABS: Follow-up Chemistry Comp? YES; Follow-up Hematology Comp? YES; Follow-up Result - Chemistry REPORT FAXED; Follow-up Result - Hematology REPORT FAXED
== END 2022-03-26 12:52 | disposition home or self-care (01) ==
LOC: NAV LABSP 12:51
PROVIDERS: ATTEND Internal Medicine Infectious Disease
DX: A41.9 Sepsis, unspecified organism (principal); I38 Endocarditis, valve unspecified
CPT/HCPCS: 80048; 85025; 86140